=== PATIENT | male | born 1985 | race Caucasian/White ===

== ENCOUNTER → 2016-06-06 | Outpatient (CLI) | payer OTHER ==
--- NOTE | 2016-06-06 11:18 | ECHOS ---
DATE OF SERVICE: 06/06/2016 AGE: 31Y SEX: M HT: 70 WT: 350 lbs. Protocol Angel: X Others: Stress Echo Stage: II Dur. of Exercise: 4-1/2 minutes *Heart Rate Blood Pressure *Rest: 119 Rest: 154/76 * *Max. Achieved: 170 Maximum BP: 198/89 85% PMHR: 160 100% PMHR: 188 *METS: 6.8 INDICATIONS: Chest pain and shortness of breath. MEDICATIONS: Lisinopril, metformin, Ativan. Baseline EKG revealed normal sinus rhythm with sinus tachycardia. Patient walked on standard Angel protocol for 4-1/2 minutes, achieved a maximum heart rate of 170 beats per minute. Developed fatigue and shortness of breath, but did not have angina or arrhythmia. EKG was unremarkable for ischemia. By EKG criteria, this is a negative stress test with very limited exercise capacity probably because of poor conditioning. Baseline echo images reveal normal wall motion and wall thickening of all segments. At peak exercise, there was good augmentation of left ventricular wall motion and wall thickening of all segments suggesting that there is no evidence of any stress-induced ischemia on this study. FINAL IMPRESSION: 1. By EKG criteria, this is a negative stress test with limited exercise capacity probably because of poor conditioning. 2. Normal stress echocardiogram with limited exercise capacity.
== END | disposition home or self-care (01) ==
LOC: RADNMMAIN 09:11
PROVIDERS: ATTEND Family Medicine
DX: R07.9 Chest pain, unspecified (principal)
CPT/HCPCS: 93017; C8928; Q9957; 93350

== ENCOUNTER → 2016-06-20 | Outpatient (CLI) | payer OTHER ==
--- NOTE | 2016-06-20 17:38 | PN ---
Nikhil is coming in for a compliancy check regarding his obstructive sleep apnea. He was diagnosed having moderate to severe STEPHANIA with an AHI of 24. He was given a CPAP pressure of 14 cm of water based on the titration that was done in March of 2016. Today he is coming in for a compliancy check and he is bringing his CPAP machine with him. He has a ResMed AutoSet unit which is set at a fixed CPAP pressure of 14 cm of water. I checked his compliancy data and it is extremely poor. The patient tells me that initially he used it and he felt great; however, he was having difficulties exhaling and he ended up not using the machine for the past 50 days at least. While on the CPAP therapy, the treatment was successful; his AHI dropped down to 2.2. Nevertheless, I do not see that he has put enough days or enough hours on that CPAP machine. He was given a Simplus full-face mask. His BP is 148/88, pulse 100, respiration 16. Temperature is 98.0, saturation 96% on room air. Weight is 355, which is 3 pounds higher compared to his CPAP titration date. GENERAL APPEARANCE: Calm, comfortable. HEENT: Short neck. Crowding of the posterior pharynx. No goiter or neck masses. LUNGS: Clear to auscultation. HEART: Sounds are regular rate and rhythm. Normal S1, S2. ABDOMEN: Soft, nontender. No organomegaly. EXTREMITIES: No edema. No cyanosis or clubbing. IMPRESSION: 1. Moderately severe obstructive sleep apnea with an AHI of 24 with very poor compliancy, based on the compliance data that was checked from his CPAP machine. 2. Chronic hypersomnia. 3. Obesity with a body mass index of 52.1. PLAN: 1. Encourage weight loss. 2. Adjustments will be made on the CPAP machine based on the previous titration that was done in March of 2016. I reviewed this study again, and I thought lowering the CPAP pressure to 11 cm of water is reasonable for the time being as long as the patient is having difficulty with exhalation while being on CPAP therapy. I dropped his CPAP pressure to 11, and I also switched him to an automatic mode and offered him a pressure maximum of 11, pressure minimum of 4. Hopefully with this adjustment he will be encountering lower CPAP pressures. We will be keeping him on a Simplus full-face mask. He will see me back in 4 weeks' time in followup. It is very important for him to improve his compliancy; otherwise, he will be losing his CPAP machine.
== END | disposition home or self-care (01) ==

== ENCOUNTER → 2016-08-31 | Outpatient (CLI) | payer OTHER ==
[2016-08-31 17:16] LABS: ALT 78 U/L (21-72); AST 33 U/L (17-59); Alkaline Phosphatase 51 U/L (38-126); Anion Gap 11 mmol/L; Blood Urea Nitrogen 14 mg/dL (9-20); Calcium 9.1 mg/dL (8.4-10.2); Carbon Dioxide 26 mmol/L (22-30); Chloride 104 mmol/L (98-107); Cholesterol 120 mg/dL (<200); Glucose 113 mg/dL (74-99); HDL Cholesterol 35 mg/dL (40-60); Non-African American GFR(MDRD) >60 (>60 ml/min/1.73 sqM); Potassium 4.7 mmol/L (3.5-5.1); Sodium 141 mmol/L (137-145); Total Bilirubin 0.5 mg/dL (0.2-1.3); Total Protein 6.7 g/dL (6.3-8.2); Triglycerides 110 mg/dL (<150)
[2016-08-31 17:34] LABS: Prolactin 23.3 ng/mL (3.7-17.9)
[2016-08-31 18:16] LABS: Hemoglobin A1C 7.7 % (4.2-6.1)
== END | disposition home or self-care (01) ==
LOC: LABWHC1 16:07
PROVIDERS: ATTEND Internal Medicine
DX: D44.3 Neoplasm of uncertain behavior of pituitary gland (principal); G62.9 Polyneuropathy, unspecified; E11.9 Type 2 diabetes mellitus without complications; E78.5 Hyperlipidemia, unspecified
CPT/HCPCS: 36415; 80053; 80061; 82043; 82533; 83001; 83002; 83036; 84146; 84305; 84403; 84439; 84443

== ENCOUNTER → 2016-11-13 | Outpatient (CLI) | payer OTHER ==
--- NOTE | 2016-11-13 16:54 | US ---
EXAMINATION TYPE: US venous doppler duplex LE LT DATE OF EXAM: 11/13/2016 4:45 PM COMPARISON: NONE CLINICAL HISTORY: R60.0 edema left leg. SIDE PERFORMED: Left TECHNIQUE: The lower extremity deep venous system is examined utilizing real time linear array sonog abhishek with graded compression, doppler sonography and color-flow sonography. VESSELS IMAGED: External Iliac Vein (EIV) Common Femoral Vein Deep Femoral Vein Greater Saphenous Vein * Femoral Vein Popliteal Vein Small Saphenous Vein * Proximal Calf Veins (* superficial vessels) Large body habitus, technically difficult study Left Leg: Negative for DVT IMPRESSION: Negative exam. No evidence of deep venous thrombosis in the left leg. Limited exam.
== END | disposition home or self-care (01) ==
LOC: RADUSWWP 16:23
PROVIDERS: ATTEND Family Medicine
DX: R60.0 Localized edema (principal)

== ENCOUNTER → 2016-11-17 | Outpatient (CLI) | payer OTHER ==
--- NOTE | 2016-11-17 11:08 | US ---
EXAMINATION TYPE: US abdomen limited DATE OF EXAM: 11/17/2016 COMPARISON: Prior limited abdominal ultrasound from December 14, 2015 CLINICAL HISTORY: R10.9 Abd Pain. RUQ pain, nausea EXAM MEASUREMENTS: Liver Length: 22.9 cm Gallbladder Wall: 0.3 cm CBD: 0.4 cm Right Kidney: 11.7 x 5.3 x 4.9 cm Pancreas: Obscured by bowel gas Liver: limited evaluation, unable to penetrate, enlarged and attenuating Gallbladder: stone = 1.2cm, solid material noted as well Evidence for sonographic Simmons's sign: No CBD: appears wnl as visualized Right Kidney: no evidence of hydronephrosis or mass Technical limitations due to patient's body habitus. Pancreas is suboptimally evaluated on images saved. Visualized liver is heterogeneously hyperechoic i n appearance. Evaluation for focal masses is suboptimal due to the heterogeneity. Gallbladder is not completely anechoic. There is shadowing gallstone. There is suspected small stones or gallbladder slu dge. No pericholecystic fluid collection or abnormal Doppler wall thickening is seen. Sonographic Mur phy's sign is negative. IMPRESSION: 1. Gallstones and gallbladder sludge without convincing secondary ultrasound evidence for acute renate cystitis. 2. Diffuse fatty infiltration of liver is redemonstrated.
== END | disposition home or self-care (01) ==
LOC: RADUSWWP 10:27
PROVIDERS: ATTEND Family Medicine
DX: K80.20 Calculus of gallbladder without cholecystitis without obstruction (principal); K76.0 Fatty (change of) liver, not elsewhere classified; Z88.6 Allergy status to analgesic agent
CPT/HCPCS: 76705

== ENCOUNTER 2017-01-14 20:34 | Observation (INO) | payer OTHER ==
--- NOTE | 2017-01-14 21:23 | ED ---
General Adult HPI - General Chief complaint: Arrhythmia/Palpitations Stated complaint: weakness; nausea Time Seen by Provider: 01/14/17 20:47 Source: patient, RN notes reviewed, old records reviewed Mode of arrival: ambulatory Limitations: no limitations - History of Present Illness Initial comments: Chief complaint history of present illness this is a 31-year-old male with a complaint of palpitations mild chest discomfort. Patient reports this is occurred to him over 6 times this year alone. He's had workups including stress test without any positive findings. Patient reports this evening he was having some palpitations and some sweats or chillswhich are recurrent. No apparent radiation. No nausea no vomiting. - Related Data Home Medications Medication Instructions Recorded Confirmed LORazepam [Ativan] 1 mg PO DAILY PRN 12/11/16 01/14/17 metFORMIN HCL [Glucophage] 500 mg PO BID 12/11/16 01/14/17 Citalopram Hydrobromide [CeleXA] 10 mg PO ONCE 01/14/17 01/14/17 Citalopram Hydrobromide [CeleXA] 20 mg PO DAILY 01/14/17 01/14/17 Glimepiride [Amaryl] 2 mg PO DAILY 01/14/17 01/14/17 Pantoprazole Sodium [Protonix] 40 mg PO DAILY 01/14/17 01/14/17 Previous Rx's Medication Instructions Recorded Lisinopril [Zestril] 10 mg PO DAILY #30 tab 11/01/15 Allergies Allergy/AdvReac Type Severity Reaction Status Date / Time naproxen Allergy Rash/Hives Verified 01/14/17 21:20 Review of Systems ROS Statement: Those systems with pertinent positive or pertinent negative responses have been documented in the HPI. review of systems no visual acuity or headache at this time the chest pain palpitations or pressure at this time. Patient reports his normal heart rate to 100 110. Around emergency room was 116. During the physical exam was at the 125. Patient reports she was often diaphoretic even without the chest discomfort or palpitations. Mild nausea but no vomiting no diarrhea. Patient' s past medical problems significant for non-insulin diabetes mellitus, hypertension, sleep apnea as difficulty using a CPAP machine. He has a gallbladder disorder he states for the past 9 months trying to get it removed but scheduling is made difficult. The patient surgeries include wisdom teeth. The patient's family history significant for cancers and include colon, bone lung and lymph nodes. The patient quit smoking drinking 20 years ago ROS Other: All systems not noted in ROS Statement are negative. Past Medical History Past Medical History: Diabetes Mellitus, Hypertension, Sleep Apnea/CPAP/BIPAP Additional Past Medical History / Comment(s): gallbladder disorder. brain lesion. uses c-pap History of Any Multi-Drug Resistant Organisms: None Reported Additional Past Surgical History / Comment(s): wisdom teeth Past Anesthesia/Blood Transfusion Reactions: Previous Problems w/ Anesthesia Additional Past Anesthesia/Blood Transfusion Reaction / Comment(s): has a hard time breathing when lying flat or on side Past Psychological History: Anxiety Smoking Status: Former smoker Past Alcohol Use History: None Reported Past Drug Use History: None Reported - Past Family History Mother Family Medical History: No Reported History General Exam - General Exam Comments Initial Comments: General: The patient is awake and alert,complaint palpitations. States his heart rates normally 105-110. Diaphoresis and occasional shortness of breath. Recurrent symptoms that brought emergency room 6 times in the past year. No chest pain at this time. Vital signs temp 99.8 pulse 116 respiratory rate 20 pulse ox 96% room air blood pressure 160/78ll. Eye: Pupils are equal, round and reactive to light, extra-ocular movements are intact ; there is normal conjunctiva bilaterally. No signs of icterus. Ears, nose, mouth and throat: There are moist mucous membranes and no oral lesions. Neck: The neck is supple, there is no tenderness . Cardiovascular: tachycardic heart rate, 116. No murmur, rub or gallop is appreciated. Respiratory: Lungs are clear to auscultation, respirations are non-labored, breath sounds are equal. No wheezes, stridor, rales, or rhonchi. Gastrointestinal: Soft, non-distended, non-tender abdomen without masses or organomegaly noted. There is no rebound or guarding present. No CVA tenderness. Bowel sounds are unremarkable.patient is morbidly obese 5 foot 10 and 360 pounds. Back: There is no tenderness to palpation in the midline. There is no obvious deformity. No rashes noted. Musculoskeletal: Normal ROM, no tenderness, There is no pedal edema. There is no calf tenderness or swelling. Sensation intact. Pulses equal bilaterally 2+. Neurological: CN II-XII intact, There are no obvious motor or sensory deficits. Coordination appears grossly intact. Speech is normal. Skin: Skin is warm and dry and no rashes or lesions are noted. no rash no lesions. Psychiatric: history of anxiety but no problems at this time. Limitations: no limitations Course Vital Signs 01/14/17 01/14/17 20:35 21:39 Temperature 99.8 F H Pulse Rate 116 H 112 H Respiratory 20 20 Rate Blood Pressure 160/78 O2 Sat by Pulse 96 96 Oximetry EKG Findings - EKG Comments: EKG Findings:: EKG was doneand reviewed at 2047 showing sinus tachycardia rate 116. Left posterior fascicular block nonspecific T wave irregularities. MA interval was 128 QRS 92 QT 3:30 QTc [address]. No acute ST elevation, no ectopy. The patient's EKG was compared to one done on 04/28/2016 and they're similar. Medical Decision Making - Medical Decision Making Medical decision making; patient's white count is 9.1 hemoglobin 15 hematocrit of 47 with a normal d-dimer 0.18. Potassium 4.4 BUN 18 creatinine 1.0 GFR greater than 60. Glucose 223. Chest x-ray was done and reviewed by radiologist his findings are heart and mediastinum are normal. Lungs are clear. Diaphragm is normal. There are chest leads. Impression; normal chest no change. As read by Dr. Wade The patient was started on subcu heparin. He'll be admitted for observation for atypical chest pain. - Lab Data Result diagrams: 01/14/17 21:45 01/14/17 21:45 Lab Results 01/14/17 01/14/17 01/14/17 Range/Units 21:45 21:45 21:45 WBC 9.1 (3.8-10.6) k/uL RBC 5.36 (4.30-5.90) m/uL Hgb 15.5 (13.0-17.5) gm/dL Hct 47.2 (39.0-53.0) % MCV 88.1 (80.0-100.0) fL MCH 29.0 (25.0-35.0) pg MCHC 32.9 (31.0-37.0) g/dL RDW 14.1 (11.5-15.5) % Plt Count 245 (150-450) k/uL Neutrophils % 72 % Lymphocytes % 19 % Monocytes % 5 % Eosinophils % 1 % Basophils % 1 % Neutrophils # 6.5 (1.3-7.7) k/uL Lymphocytes # 1.7 (1.0-4.8) k/uL Monocytes # 0.4 (0-1.0) k/uL Eosinophils # 0.1 (0-0.7) k/uL Basophils # 0.1 (0-0.2) k/uL D-Dimer 0.18 (<0.60) mg/L FEU Sodium 141 (137-145) mmol/L Potassium 4.4 (3.5-5.1) mmol/L Chloride 107 (98-107) mmol/L Carbon Dioxide 23 (22-30) mmol/L Anion Gap 11 mmol/L BUN 18 (9-20) mg/dL Creatinine 1.00 (0.66-1.25) mg/dL Est GFR (MDRD) Af Amer >60 (>60 ml/min/1.73 sqM) Est GFR (MDRD) Non-Af >60 (>60 ml/min/1.73 sqM) Glucose 223 H (74-99) mg/dL Calcium 9.6 (8.4-10.2) mg/dL Total Bilirubin 0.3 (0.2-1.3) mg/dL AST 36 (17-59) U/L ALT 87 H (21-72) U/L Alkaline Phosphatase 59 (38-126) U/L Total Protein 6.7 (6.3-8.2) g/dL Albumin 4.0 (3.5-5.0) g/dL Disposition Clinical Impression: Chest pain, atypical Disposition: ADMITTED IP TO THIS HOSP Condition: Stable Referrals: Dixon Rinaldi MD [Primary Care Provider] - 1-2 days
--- NOTE | 2017-01-14 21:46 | XR ---
EXAMINATION TYPE: XR chest 2V DATE OF EXAM: 01/14/2017 COMPARISON: April 28, 2016 HISTORY: Chest pressure TECHNIQUE: Frontal and lateral views of the chest are obtained. FINDINGS: Heart and mediastinum are normal. Lungs are clear. Diaphragm is normal. There are chest le ads. IMPRESSION: Normal chest. No change.
[2017-01-14 21:57] LABS: Basophils # (A) 0.1 k/uL (0-0.2); Basophils % (A) 1 %; CH 29.8; Eosinophils # (A) 0.1 k/uL (0-0.7); Eosinophils % (A) 1 %; HCT 47.2 % (39.0-53.0); HDW 2.69; HGB 15.5 gm/dL (13.0-17.5); Luc % (Auto) 2; Lymphocytes # (A) 1.7 k/uL (1.0-4.8); Lymphocytes % (A) 19 %; MCHC 32.9 g/dL (31.0-37.0); MCV 88.1 fL (80.0-100.0); Mean Platelet Volume 7.3; Monocytes # (A) 0.4 k/uL (0-1.0); Monocytes % (A) 5 %; Neutrophils # (A) 6.5 k/uL (1.3-7.7); Neutrophils % (A) 72 %; RBC 5.36 m/uL (4.30-5.90); RDW 14.1 % (11.5-15.5); WBC 9.1 k/uL (3.8-10.6); WBC (Perox) 8.77
[2017-01-14 22:09] LABS: ALT 87 U/L (21-72); AST 36 U/L (17-59); Alkaline Phosphatase 59 U/L (38-126); Anion Gap 11 mmol/L; Blood Urea Nitrogen 18 mg/dL (9-20); Calcium 9.6 mg/dL (8.4-10.2); Carbon Dioxide 23 mmol/L (22-30); Chloride 107 mmol/L (98-107); Glucose 223 mg/dL (74-99); Non-African American GFR(MDRD) >60 (>60 ml/min/1.73 sqM); Potassium 4.4 mmol/L (3.5-5.1); Sodium 141 mmol/L (137-145); Total Bilirubin 0.3 mg/dL (0.2-1.3); Total Protein 6.7 g/dL (6.3-8.2)
[2017-01-14 22:17] LABS: Creatine Kinase 303 U/L (55-170)
[2017-01-14] MEDS ORDERED: HEPARIN SODIUM,PORCINE 5,000 UNIT/ML 1 ML VIAL SQ STA (22:26)
[2017-01-14] MEDS ORDERED: NALOXONE 0.4 MG/ML 1 ML VIAL IV PRN (22:28)
[2017-01-14] MEDS ORDERED: ACETAMINOPHEN TAB 325 MG TAB PO PRN (22:28)
[2017-01-14 22:29] LABS: Creatine Kinase MB 1.3 ng/mL (0.0-2.4); Troponin I <0.012 ng/mL (0.000-0.034)
[2017-01-14 23:52] VITALS: BMI 50.2
[2017-01-15] MEDS: metFORMIN 500 MG TAB PO SCH ×2 (00:07→09:26)
[2017-01-15 00:31] VITALS: RESP 16
[2017-01-15 04:53] LABS: Creatine Kinase 245 U/L (55-170)
[2017-01-15 05:06] LABS: Troponin I <0.012 ng/mL (0.000-0.034)
[2017-01-15 07:17] LABS: Glucose,Whole Blood 119 mg/dL (75-99)
[2017-01-15] MEDS ORDERED: FAMOTIDINE 20 MG TAB PO SCH (09:00)
[2017-01-15] MEDS ORDERED: METOPROLOL TARTRATE 12.5 MG TAB PO SCH (09:15)
[2017-01-15] MEDS: SODIUM CHLORIDE 0.9% 1,000 ML IV SCH ×2 (09:26→11:04)
[2017-01-15 10:35] LABS: Creatine Kinase 213 U/L (55-170)
[2017-01-15 10:45] LABS: Troponin I <0.012 ng/mL (0.000-0.034)
[2017-01-15 11:37] LABS: Cholesterol 134 mg/dL (<200); HDL Cholesterol 36 mg/dL (40-60)
[2017-01-15 12:05] LABS: Glucose,Whole Blood 187 mg/dL (75-99)
[2017-01-15 12:59] VITALS: BP 139/83; PULSE 97; TEMP 99.1
[2017-01-15 13:01] LABS: Hemoglobin A1C 8.3 % (4.2-6.1)
--- NOTE | 2017-01-15 14:33 | P.CRDCN ---
History of Present Illness Consult date: 01/15/17 History of present illness: This is a 31-year-old male. Past medical history significant for sinus tachycardia, hypertension, diabetes, anxiety and morbid obesity. Patient presents with complaints of and intermittent palpitations associated with diaphoresis. Patient sees Dr. Chacon as an outpatient. He was last seen in September of this year. He has worn an event monitor in the past did not reveal any significant arrhythmias. Although the patient states during his last event monitor he did not feel any of these symptoms during the 30 days. Upon review of his vital signs it appears his heart rate is decreased in the 70s and 80s while he is asleep and immediately goes up while he is awake. His heart rate at time of exam is 120. Patient had a exercise stress echo in May of this year which was normal. Most recent echocardiogram was done 09/22/2016 shows a preserved left ventricular systolic function with an ejection fraction of 55% with moderate concentric hypertrophy, left atrium is mildly dilated, mitral regurgitation and trace tricuspid regurgitation. His current medications include metformin, Protonix, Zestril 10 mg daily, Ativan when necessary, Amaryl , Celexa. EKG done shows sinus tachycardia with nonspecific T-wave abnormalities, rate of 116 beats per minute. CBC was within normal limits, d-dimer negative, blood sugars mildly elevated. CPK and troponin are normal x 2. TSH was done in October. Chest x-ray showed no acute cardiopulmonary process. Review of Systems REVIEW OF SYSTEMS: Patient denies any chest discomfort. No shortness of breath. No diaphoresis. Denies headache, dizziness, blurred vision, double vision. No dyspnea on exertion. Patient denies any stomach discomfort. No nausea, vomiting. No hematochezia. No hematemesis. Denies any black stools or blood in his stools. No syncope. No palpitations at this current time. No cough. No recent fever or chills. No muscle weakness or numbness. Past Medical History Past Medical History: Diabetes Mellitus, Hypertension, Sleep Apnea/CPAP/BIPAP Additional Past Medical History / Comment(s): gallbladder disorder supposed to have it removed in dec 2016. 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 uses c-pap. palpatations History of Any Multi-Drug Resistant Organisms: None Reported Additional Past Surgical History / Comment(s): wisdom teeth Past Anesthesia/Blood Transfusion Reactions: Previous Problems w/ Anesthesia Additional Past Anesthesia/Blood Transfusion Reaction / Comment(s): has a hard time breathing when lying flat or on side Past Psychological History: Anxiety Smoking Status: Former smoker Past Alcohol Use History: None Reported Additional Past Alcohol Use History / Comment(s): quit smoking 2014. STILL USES VAPOR THAT HAS NICOTINE IN SOLUTION Past Drug Use History: None Reported - Past Family History Mother Family Medical History: No Reported History Additional Family Medical History / Comment(s): grandfather [facility] at 50 Medications and Allergies Home Medications Medication Instructions Recorded Confirmed Type LORazepam [Ativan] 1 mg PO DAILY PRN 12/11/16 01/14/17 History metFORMIN HCL [Glucophage] 500 mg PO BID 12/11/16 01/14/17 History Citalopram Hydrobromide [CeleXA] 10 mg PO ONCE 01/14/17 01/14/17 History Citalopram Hydrobromide [CeleXA] 20 mg PO DAILY 01/14/17 01/14/17 History Glimepiride [Amaryl] 2 mg PO DAILY 01/14/17 01/14/17 History Pantoprazole Sodium [Protonix] 40 mg PO DAILY 01/14/17 01/14/17 History Allergies Allergy/AdvReac Type Severity Reaction Status Date / Time naproxen Allergy Rash/Hives Verified 01/14/17 21:20 Physical Exam Vitals: Vital Signs Temp Pulse Pulse Pulse Resp BP BP 01/15/17 08:00 98.1 F 83 16 143/80 01/15/17 05:11 76 16 159/89 01/15/17 04:00 90 16 01/15/17 00:30 98.5 F 106 H 16 163/92 01/15/17 00:00 99 20 01/14/17 23:30 98.8 F 99 16 135/80 01/14/17 22:44 98.4 F 100 20 167/84 01/14/17 21:39 112 H 20 01/14/17 20:35 99.8 F H 116 H 20 160/78 Pulse Ox 01/15/17 08:00 98 01/15/17 05:11 98 01/15/17 04:00 01/15/17 00:30 93 L 01/15/17 00:00 01/14/17 23:30 98 01/14/17 22:44 97 01/14/17 21:39 96 01/14/17 20:35 96 Intake and Output 01/14/17 01/15/17 01/15/17 22:59 06:59 14:59 Other: # Voids 1 2 Weight 158.757 kg 158.757 kg GENERAL: This is a 31-year-old artesian male in no apparent distress at the time of my examination. Morbid obesity. HEENT: Head is atraumatic, normocephalic. Pupils are equal, round. Sclerae anicteric. Conjunctivae are clear. Mucous membranes of the mouth are moist. Neck is supple. There is no jugular venous distention. No carotid bruit is heard. LUNGS: Clear to auscultation no wheezes, rales or rhonchi. No chest wall tenderness is noted on palpation or with deep breathing. HEART: Regular rate and rhythm without murmurs, rubs or gallops. S1 and S2 heard. Tachycardia. ABDOMEN: Soft, nontender. Bowel sounds are heard. No organomegaly noted. EXTREMITIES: 2+ peripheral pulses with no evidence of peripheral edema and no calf tenderness noted. NEUROLOGIC: Patient is awake, alert and oriented x3. Results 01/14/17 21:45 01/14/17 21:45 Cardiac Enzymes 01/14/17 01/14/17 01/15/17 Range/Units 21:45 21:45 03:45 AST 36 (17-59) U/L CK-MB (CK-2) 1.3 1.0 (0.0-2.4) ng/mL Troponin I <0.012 <0.012 (0.000-0.034) ng/mL CBC 01/14/17 Range/Units 21:45 WBC 9.1 (3.8-10.6) k/uL RBC 5.36 (4.30-5.90) m/uL Hgb 15.5 (13.0-17.5) gm/dL Hct 47.2 (39.0-53.0) % Plt Count 245 (150-450) k/uL Comprehensive Metabolic Panel 01/14/17 Range/Units 21:45 Sodium 141 (137-145) mmol/L Potassium 4.4 (3.5-5.1) mmol/L Chloride 107 (98-107) mmol/L Carbon Dioxide 23 (22-30) mmol/L BUN 18 (9-20) mg/dL Creatinine 1.00 (0.66-1.25) mg/dL Glucose 223 H (74-99) mg/dL Calcium 9.6 (8.4-10.2) mg/dL AST 36 (17-59) U/L ALT 87 H (21-72) U/L Alkaline Phosphatase 59 (38-126) U/L Total Protein 6.7 (6.3-8.2) g/dL Albumin 4.0 (3.5-5.0) g/dL Current Medications Generic Name Dose Route Start Last Admin Trade Name Freq PRN Reason Stop Dose Admin Acetaminophen 650 mg 01/14/17 22:28 Tylenol Tab PO Q6HR PRN Mild Pain or Fever > 100.5 Famotidine 20 mg 01/15/17 09:00 01/15/17 09:26 Pepcid PO 20 mg BID ALCIDES Administration Sodium Chloride 1,000 mls @ 80 mls/hr 01/14/17 22:30 01/15/17 09:26 Saline 0.9% IV Not Given .[id number] ALCIDES Metformin HCl 500 mg 01/14/17 23:00 01/15/17 09:26 Glucophage PO 500 mg BID-W/MEALS ALCIDES Administration Metoprolol Tartrate 12.5 mg 01/15/17 09:15 Lopressor PO BID ALCIDES Naloxone HCl 0.2 mg 01/14/17 22:28 Narcan IV Q2M PRN Opioid Reversal Intake and Output 01/14/17 01/15/17 01/15/17 22:59 06:59 14:59 Other: # Voids 1 2 Weight 158.757 kg 158.757 kg 01/14/17 21:45 01/14/17 21:45 EKG Interpretations (text) EKG reveals sinus tachycardia with nonspecific T-wave abnormalities. Assessment and Plan Plan: ASSESSMENT 1. Palpitations, sinus tachycardia 2. Hypertension 3. Diabetes mellitus 4. Morbid obesity PLAN We will start the patient on low dose beta zuleika 12.5 mg by mouth twice a day. We will also set up for another 30 day event monitor. He is to follow-up with Dr. Dr. Chacon in the office after the event monitor is completed. Nurse Practitioner note has been reviewed, I agree with a documented findings and plan of care. Patient was seen and examined.
--- NOTE | 2017-01-15 16:20 | P.HPIM ---
History of Present Illness H&P Date: 01/15/17 Chief Complaint: Palpitations This is a 31-year-old male with Past medical history significant for sinus tachycardia, hypertension, diabetes, anxiety and morbid obesity and objective sleep apnea on CPAP at home. Patient presents with complaints of and intermittent palpitations associated with diaphoresis and tingling along the left side of the body.. Some time in July, He has worn an event monitor in the past did not reveal any significant arrhythmias. Patient apparently having the symptoms for the past several months and was seen by cardiology previously. Patient was tachycardic on admission. There are any chest tightness, dizziness or lightheadedness. Patient had a exercise stress echo in May of this year which was normal. Most recent echocardiogram was done 09/22/2016 shows a preserved left ventricular systolic function with an ejection fraction of 55% with moderate concentric hypertrophy, left atrium is mildly dilated, mitral regurgitation and trace tricuspid regurgitation. EKG done shows sinus tachycardia with nonspecific T-wave abnormalities, rate of 116 beats per minute. CBC was within normal limits, d-dimer negative, blood sugars mildly elevated. CPK and troponin are normal x 2. TSH was done in October. Chest x-ray showed no acute cardiopulmonary process. Review of Systems Constitutional: Patient denies any fever or chills . No generalized weakness or weight loss. Abdomen: Patient denied nausea vomiting and diarrhea and abdominal pain. Cardiovascular: Tingling sensation along the left side of his chest and palpitations. No diaphoresis or short of breath. Respiratory: patient denied any cough is from production. No shortness of breath Neurologic: Patient denied any numbness or tingling headache. Musculoskeletal: Patient denies any complaints of joint swelling or deformity. Skin: Negative Psychiatric: Negative Endocrine: No heat or cold intolerance. No recent weight gain. Genitourinary: No dysuria or hematuria. All other 14 point ROS negative except the above Past Medical History Past Medical History: Diabetes Mellitus, Hypertension, Sleep Apnea/CPAP/BIPAP Additional Past Medical History / Comment(s): gallbladder disorder supposed to have it removed in dec 2016. 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 uses c-pap. palpatations History of Any Multi-Drug Resistant Organisms: None Reported Additional Past Surgical History / Comment(s): wisdom teeth Past Anesthesia/Blood Transfusion Reactions: Previous Problems w/ Anesthesia Additional Past Anesthesia/Blood Transfusion Reaction / Comment(s): has a hard time breathing when lying flat or on side Past Psychological History: Anxiety Smoking Status: Former smoker Past Alcohol Use History: None Reported Additional Past Alcohol Use History / Comment(s): quit smoking 2014. STILL USES VAPOR THAT HAS NICOTINE IN SOLUTION Past Drug Use History: None Reported - Past Family History Mother Family Medical History: No Reported History Additional Family Medical History / Comment(s): grandfather [place] at 50 Medications and Allergies Home Medications Medication Instructions Recorded Confirmed Type LORazepam [Ativan] 1 mg PO DAILY PRN 12/11/16 01/14/17 History metFORMIN HCL [Glucophage] 500 mg PO BID 12/11/16 01/14/17 History Citalopram Hydrobromide [CeleXA] 10 mg PO ONCE 01/14/17 01/14/17 History Citalopram Hydrobromide [CeleXA] 20 mg PO DAILY 01/14/17 01/14/17 History Glimepiride [Amaryl] 2 mg PO DAILY 01/14/17 01/14/17 History Pantoprazole Sodium [Protonix] 40 mg PO DAILY 01/14/17 01/14/17 History Allergies Allergy/AdvReac Type Severity Reaction Status Date / Time naproxen Allergy Rash/Hives Verified 01/14/17 21:20 Physical Exam Vitals: Vital Signs Temp Pulse Pulse Pulse Resp BP BP 01/15/17 12:00 99.1 F 97 16 139/83 01/15/17 08:00 98.1 F 83 16 143/80 01/15/17 05:11 76 16 159/89 01/15/17 04:00 90 16 01/15/17 00:30 98.5 F 106 H 16 163/92 01/15/17 00:00 99 20 01/14/17 23:30 98.8 F 99 16 135/80 01/14/17 22:44 98.4 F 100 20 167/84 01/14/17 21:39 112 H 20 01/14/17 20:35 99.8 F H 116 H 20 160/78 Pulse Ox 01/15/17 12:00 99 01/15/17 08:00 98 01/15/17 05:11 98 01/15/17 04:00 01/15/17 00:30 93 L 01/15/17 00:00 01/14/17 23:30 98 08/20/17 22:44 97 01/14/17 21:39 96 01/14/17 20:35 96 Intake and Output 01/14/17 01/15/17 01/15/17 22:59 06:59 14:59 Other: # Voids 1 2 Weight 158.757 kg 158.757 kg PHYSICAL EXAMINATION: Patient is lying in the bed comfortably, no acute distress, awake alert and oriented.. Morbidly obese HEENT: Normocephalic. Neck is supple. Pupils reactive. Nostrils clear. Oral cavity is moist. Ears reveal no drainage. Neck reveals no JVD, carotid bruits, or thyromegaly. CHEST EXAMINATION: Trachea is central. Symmetrical expansion. Lung junior clear to auscultation and percussion. CARDIAC: Normal S1, S2 with no gallops. No murmurs. tachycardia ABDOMEN: Soft. Bowel sounds normal. No organomegaly. No abdominal bruits. Extremities: reveal no edema. No clubbing or cyanosis Neurologically awake, alert, oriented x3 with well-coordinated movements. No focal deficits noted Skin: No rash or skin lesions. Psychiatric: Operative. Nonsuicidal Musculoskeletal: No joint swelling or deformity. Normal range of motion. Results CBC & Chem 7: 01/14/17 21:45 01/14/17 21:45 Labs: Abnormal Lab Results - Last 24 Hours (Table) 01/14/17 01/14/17 01/15/17 Range/Units 21:45 21:45 03:45 Glucose 223 H (74-99) mg/dL POC Glucose (mg/dL) (75-99) mg/dL ALT 87 H (21-72) U/L Total Creatine Kinase 303 H 245 H (55-170) U/L HDL Cholesterol (40-60) mg/dL 01/15/17 01/15/17 01/15/17 Range/Units 03:45 07:16 09:38 Glucose (74-99) mg/dL POC Glucose (mg/dL) 119 H (75-99) mg/dL ALT (21-72) U/L Total Creatine Kinase 213 H (55-170) U/L HDL Cholesterol 36 L (40-60) mg/dL 01/15/17 Range/Units 11:59 Glucose (74-99) mg/dL POC Glucose (mg/dL) 187 H (75-99) mg/dL ALT (21-72) U/L Total Creatine Kinase (55-170) U/L HDL Cholesterol (40-60) mg/dL Thrombosis Risk Factor Assmnt - Choose All That Apply Each Factor Represents 1 point: Obesity (BMI >25) Thrombosis Risk Factor Assessment Total Risk Factor Score: 1 Thrombosis Risk Factor Assessment Level: Low Risk Assessment and Plan Plan: #1 palpitations secondary to sinus tachycardia. With her history of present event monitor placement. No arrhythmia noted. #2 anxiety #3 hypertension #4 obstructive sleep apnea #5 diabetes type 2 #6 moderate obesity with a BMI 50.2 #7 DVT prophylaxis Plan: Patient be continued on telemetry monitoring. Patient was started on metoprolol 12.5 mg twice a day and his heart rate is better controlled now. TSH within normal limits. D-dimer is negative. Cardiology recommends to follow up follow up as an outpatient for another event monitor placement. Patient is symptom-free at this time and wants to be discharged.
--- NOTE | 2017-01-15 16:20 | P.DS ---
Providers Date of admission: 01/14/17 22:28 Expected date of discharge: 01/15/17 Attending physician: Clay Carvajal MD Consults: 01/14/17 22:28 Consult Physician Stat Consulting Provider: Fausto Ji Consult Reason/Comments: atypical chest pain Do you want consulting provider notified?: Yes Primary care physician: Dixon Rinaldi Hospital Course: Discharge diagnoses Discharge Diagnoses #1 palpitations secondary to sinus tachycardia. With her history of present event monitor placement. No arrhythmia noted. #2 anxiety #3 hypertension #4 obstructive sleep apnea #5 diabetes type 2 #6 moderate obesity with a BMI 50.2 #7 DVT prophylaxis Hospital course This is a 31-year-old male with Past medical history significant for sinus tachycardia, hypertension, diabetes, anxiety and morbid obesity and objective sleep apnea on CPAP at home. Patient presents with complaints of and intermittent palpitations associated with diaphoresis and tingling along the left side of the body.. Some time in July, He has worn an event monitor in the past did not reveal any significant arrhythmias. Patient apparently having the symptoms for the past several months and was seen by cardiology previously. Patient was tachycardic on admission. There are any chest tightness, dizziness or lightheadedness. Patient had a exercise stress echo in May of this year which was normal. Most recent echocardiogram was done 09/22/2016 shows a preserved left ventricular systolic function with an ejection fraction of 55% with moderate concentric hypertrophy, left atrium is mildly dilated, mitral regurgitation and trace tricuspid regurgitation. EKG done shows sinus tachycardia with nonspecific T-wave abnormalities, rate of 116 beats per minute. Chest x-ray showed no acute cardiopulmonary process. Patient was continued on telemetry monitoring. Patient was started on metoprolol 12.5 mg twice a day and his heart rate is better controlled now. TSH couple months ago was within normal limits. D-dimer is negative. Chest x- ray negative. Serial EKG and troponins are negative. Cardiology recommends to follow up follow up as an outpatient for another event monitor placement. Patient is symptom-free at this time and wants to be discharged. Patient Condition at Discharge: Stable Plan - Discharge Summary New Discharge Prescriptions: New Metoprolol Tartrate [Lopressor] 12.5 mg PO BID #60 tab Continue Lisinopril [Zestril] 10 mg PO DAILY #30 tab metFORMIN HCL [Glucophage] 500 mg PO BID LORazepam [Ativan] 1 mg PO DAILY PRN PRN Reason: Anxiety Citalopram Hydrobromide [CeleXA] 20 mg PO DAILY Citalopram Hydrobromide [CeleXA] 10 mg PO ONCE Pantoprazole Sodium [Protonix] 40 mg PO DAILY Glimepiride [Amaryl] 2 mg PO DAILY Discharge Medication List Lisinopril [Zestril] 10 mg PO DAILY #30 tab 11/01/15 [Rx] LORazepam [Ativan] 1 mg PO DAILY PRN 12/11/16 [History] metFORMIN HCL [Glucophage] 500 mg PO BID 12/11/16 [History] Citalopram Hydrobromide [CeleXA] 10 mg PO ONCE 01/14/17 [History] Citalopram Hydrobromide [CeleXA] 20 mg PO DAILY 01/14/17 [History] Glimepiride [Amaryl] 2 mg PO DAILY 01/14/17 [History] Pantoprazole Sodium [Protonix] 40 mg PO DAILY 01/14/17 [History] Metoprolol Tartrate [Lopressor] 12.5 mg PO BID #60 tab 01/15/17 [Rx] Follow up Appointment(s)/Referral(s): Dixon Rinaldi MD [Primary Care Provider] - 1-2 days (Sunday, 01/19 at 10:00am) Tiffanie Chacon MD [STAFF PHYSICIAN] - 02/05/17 3:15 pm ([facility] (next to [facility])) Patient Instructions/Handouts: Chest Pain (DC) Activity/Diet/Wound Care/Special Instructions: Holter monitor directions and device to be mailed to patient Follow instructions for use and bring device to office follow up Discharge Disposition: HOME SELF-CARE
== END 2017-01-15 15:10 | disposition home or self-care (01) ==
LOC: EC 20:34 → 3OBS 22:28
PROVIDERS: ADMIT Internal Medicine; ATTEND Internal Medicine
DX: R00.0 Tachycardia, unspecified (principal); R61 Generalized hyperhidrosis; R06.02 Shortness of breath; R07.89 Other chest pain; F41.9 Anxiety disorder, unspecified; I10 Essential (primary) hypertension; R42 Dizziness and giddiness; G47.33 Obstructive sleep apnea (adult) (pediatric); Z99.89 Dependence on other enabling machines and devices; E11.9 Type 2 diabetes mellitus without complications; E66.01 Morbid (severe) obesity due to excess calories; Z68.43 Body mass index [BMI] 50.0-59.9, adult; Z79.84 Long term (current) use of oral hypoglycemic drugs; Z79.899 Other long term (current) drug therapy; Z88.6 Allergy status to analgesic agent; Z87.891 Personal history of nicotine dependence; Z80.0 Family history of malignant neoplasm of digestive organs; Z80.1 Family history of malignant neoplasm of trachea, bronchus and lung; Z80.7 Family history of other malignant neoplasms of lymphoid, hematopoietic and related tissues; Z80.8 Family history of malignant neoplasm of other organs or systems; Z82.49 Family history of ischemic heart disease and other diseases of the circulatory system
CPT/HCPCS: 99285; 96372 ×2; 36415; 93005; 93270; 93271; 85379; 80061; 80053; 83036; 82550 ×2; 82553 ×2; 84484 ×2; 85025; 71020; G0378 ×2; J1644

== ENCOUNTER → 2018-06-05 | Outpatient (CLI) | payer OTHER ==
--- NOTE | 2018-06-05 08:38 | MR ---
EXAMINATION TYPE: MR pituitary wo/w con DATE OF EXAM: 06/05/2018 COMPARISON: CT brain 03/17/2016 HISTORY: Neoplasm of pituitary gland, TECHNIQUE: Multiplanar, multisequence images of the sella turcica is performed without and with IV contrast, uti lizing 15 mL intravenous Gadavist . FINDINGS: Pituitary gland is not enlarged. There is decreased enhancement of the posterior aspect of the gland measuring approximately 5 mm following intravenous Gadavist. Normal vascular flow voids. Pi tuitary stalk is midline. Midline structures demonstrate normal morphology. Corpus callosum is normal. No evident hydrocephalus . IMPRESSION: Findings compatible with pituitary microadenoma
== END ==
LOC: RADMRIMAIN 07:11
PROVIDERS: ATTEND Family Medicine
DX: C75.1 Malignant neoplasm of pituitary gland (principal)
CPT/HCPCS: 70553; A9585

== ENCOUNTER 2019-01-03 03:25 | Emergency (ER) | payer OTHER ==
[2019-01-03 03:40] VITALS: RESP 20
[2019-01-03] MEDS ORDERED: SODIUM CHLORIDE 0.9% 1,000 ML IV STA (03:46)
[2019-01-03] MEDS ORDERED: MORPHINE SULFATE 4 MG/ML SYRINGE IV STA (03:46)
[2019-01-03 04:10] LABS: Appearance,Urine Clear (Clear); Bilirubin,Urine Negative (Negative); Blood,Urine Negative (Negative); Color,Urine Yellow; Glucose,Urine (UA) 4+ (Negative); Ketones,Urine Trace (Negative); Leukocyte Esterase,Urine Negative (Negative); Nitrite,Urine Negative (Negative); PH, Urine 5.5 (5.0-8.0); Protein,Urine Trace (Negative); Specific Gravity,Urine 1.042 (1.001-1.035); Urobilinogen,Urine <2.0 mg/dL (<2.0)
[2019-01-03 04:11] LABS: Basophils # (A) 0.1 k/uL (0-0.2); Basophils % (A) 1 %; Eosinophils # (A) 0.6 k/uL (0-0.7); Eosinophils % (A) 5 %; HCT 50.6 % (39.0-53.0); HGB 16.6 gm/dL (13.0-17.5); Lymphocytes # (A) 2.4 k/uL (1.0-4.8); Lymphocytes % (A) 21 %; MCH 28.7 pg (25.0-35.0); MCHC 32.8 g/dL (31.0-37.0); MCV 87.7 fL (80.0-100.0); Mean Platelet Volume 6.8; Monocytes # (A) 0.5 k/uL (0-1.0); Monocytes % (A) 5 %; Neutrophils # (A) 7.5 k/uL (1.3-7.7); Neutrophils % (A) 67 %; Platelet Count 269 k/uL (150-450); RBC 5.77 m/uL (4.30-5.90); RDW 13.2 % (11.5-15.5); WBC 11.2 k/uL (3.8-10.6)
[2019-01-03] MEDS ORDERED: ONDANSETRON 4 MG/2 ML VIAL IVP STA (04:16)
[2019-01-03] MEDS ORDERED: MORPHINE SULFATE 4 MG/ML SYRINGE IVP STA (04:16)
[2019-01-03 04:21] LABS: ALT 58 U/L (21-72); AST 28 U/L (17-59); African American GFR (CKD) >90 (>60 ml/min/1.73 sqM); Albumin 4.1 g/dL (3.5-5.0); Alkaline Phosphatase 64 U/L (38-126); Amylase <30 U/L (30-110); Anion Gap 8 mmol/L; Blood Urea Nitrogen 15 mg/dL (9-20); Calcium 9.5 mg/dL (8.4-10.2); Carbon Dioxide 28 mmol/L (22-30); Chloride 100 mmol/L (98-107); Glucose 314 mg/dL (74-99); Non-African American GFR(CKD) >90 (>60 ml/min/1.73 sqM); Potassium 4.3 mmol/L (3.5-5.1); Sodium 136 mmol/L (137-145); Total Bilirubin 0.4 mg/dL (0.2-1.3); Total Protein 7.2 g/dL (6.3-8.2)
--- NOTE | 2019-01-03 04:23 | ED ---
Abdominal Pain HPI - General Chief Complaint: Abdominal Pain Stated Complaint: Abd Pain Time Seen by Provider: 01/03/19 03:43 Source: patient Mode of arrival: ambulatory Limitations: no limitations - History of Present Illness Initial Comments: Nikhil is a morbidly obese 33-year-old gentleman with a history of known gallbladder disorder for which she was scheduled to follow-up with a surgeon in the fall of 2016 but never did. Patient reports that he can usually manage his gallbladder symptoms with diet, and when he does have pain he can usually tole rated for some period time. Patient reports that throughout the day on he ate 4 slices of pizza, no other food. Patient reports in the evening he been having significant pain in his right upper quadrant with associated nausea but no vomiting. Patient reports that after 3 hours of severe pain and became intolerable so he came to the ER for evaluation. Patient denies any associated fevers, chills or change in bowel or bladder habits. Patient describes the pain as sharp stabbing the right upper quadrant. - Related Data Home Medications Medication Instructions Recorded Confirmed LORazepam [Ativan] 1 mg PO DAILY PRN 12/11/16 01/14/17 metFORMIN HCL [Glucophage] 500 mg PO BID 12/11/16 01/14/17 Citalopram Hydrobromide [CeleXA] 10 mg PO ONCE 01/14/17 01/14/17 Citalopram Hydrobromide [CeleXA] 20 mg PO DAILY 01/14/17 01/14/17 Glimepiride [Amaryl] 2 mg PO DAILY 01/14/17 01/14/17 Pantoprazole Sodium [Protonix] 40 mg PO DAILY 01/14/17 01/14/17 Previous Rx's Medication Instructions Recorded Lisinopril [Zestril] 10 mg PO DAILY #30 tab 11/01/15 Metoprolol Tartrate [Lopressor] 12.5 mg PO BID #60 tab 01/15/17 Allergies Allergy/AdvReac Type Severity Reaction Status Date / Time naproxen Allergy Rash/Hives Verified 01/03/19 03:41 simvastatin AdvReac Abdominal Verified 01/03/19 03:41 Pain Review of Systems ROS Statement: Those systems with pertinent positive or pertinent negative responses have been documented in the HPI. ROS Other: All systems not noted in ROS Statement are negative. Past Medical History Past Medical History: Diabetes Mellitus, Hypertension, Sleep Apnea/CPAP/BIPAP Additional Past Medical History / Comment(s): gallbladder disorder supposed to have it removed in dec 2016. 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 uses c-pap. palpatations History of Any Multi-Drug Resistant Organisms: None Reported Additional Past Surgical History / Comment(s): wisdom teeth Past Anesthesia/Blood Transfusion Reactions: Previous Problems w/ Anesthesia Additional Past Anesthesia/Blood Transfusion Reaction / Comment(s): has a hard time breathing when lying flat or on side Past Psychological History: Anxiety, Schizophrenia Smoking Status: Current every day smoker Past Alcohol Use History: None Reported Past Drug Use History: None Reported - Past Family History Mother Family Medical History: No Reported History Additional Family Medical History / Comment(s): grandfather [place] at 50 General Exam - General Exam Comments Initial Comments: Physical Exam GENERAL: Patient is well-developed and well-nourished. Patient is nontoxic and well-hydrated and is in no distress. HENT: Normocephalic, Atraumatic. EYES: PERRL, EOMI PULMONARY: Unlabored respirations. No audible rales rhonchi or wheezing was noted. CARDIOVASCULAR: There is a regular rate and rhythm without any murmurs gallops or rubs. ABDOMEN: Morbidly obese Soft, tenderness to right upper quadrant Positive Simmons sign SKIN: Skin is clear with no lesions or rashes and otherwise unremarkable. : Deferred NEUROLOGIC: Patient is alert and oriented x3. Moving all extremities spontaneously MUSCULOSKELETAL: Normal extremities with adequate strength and full range of motion. No lower extremity swelling or edema. No calf tenderness. PSYCHIATRIC: Normal psychiatric evaluation Limitations: no limitations Course Vital Signs 01/03/19 01/03/19 01/03/19 03:37 04:38 05:46 Temperature 98.8 F 98.5 F 98.8 F Pulse Rate 99 100 89 Respiratory 20 20 20 Rate Blood Pressure 157/96 142/90 120/69 O2 Sat by Pulse 98 95 95 Oximetry 01/03/19 06:48 Temperature 98.6 F Pulse Rate 89 Respiratory 20 Rate Blood Pressure 127/87 O2 Sat by Pulse 95 Oximetry Medical Decision Making - Medical Decision Making The patient was seen and evaluated, history is obtained from the patient Labs and ultrasound imaging were ordered Labs with leukocytosis, normal liver function, normal lipase, normal amylase, hyperglycemia Ultrasound with cholelithiasis no signs of acute cholecystitis Patient was reevaluated and reports feeling much better after medications. Pain has improved. Patient is comfortable with the plan for discharge home and outpatient follow-up with general surgery [place] modifications were again discussed, return parameters discussed patient discharged home in stable condition. - Lab Data Result diagrams: 01/03/19 04:00 01/03/19 04:00 Lab Results 01/03/19 01/03/19 01/03/19 Range/Units 04:00 04:00 04:00 WBC 11.2 H (3.8-10.6) k/uL RBC 5.77 (4.30-5.90) m/uL Hgb 16.6 (13.0-17.5) gm/dL Hct 50.6 (39.0-53.0) % MCV 87.7 (80.0-100.0) fL MCH 28.7 (25.0-35.0) pg MCHC 32.8 (31.0-37.0) g/dL RDW 13.2 (11.5-15.5) % Plt Count 269 (150-450) k/uL Neutrophils % 67 % Lymphocytes % 21 % Monocytes % 5 % Eosinophils % 5 % Basophils % 1 % Neutrophils # 7.5 (1.3-7.7) k/uL Lymphocytes # 2.4 (1.0-4.8) k/uL Monocytes # 0.5 (0-1.0) k/uL Eosinophils # 0.6 (0-0.7) k/uL Basophils # 0.1 (0-0.2) k/uL Sodium 136 L (137-145) mmol/L Potassium 4.3 (3.5-5.1) mmol/L Chloride 100 (98-107) mmol/L Carbon Dioxide 28 (22-30) mmol/L Anion Gap 8 mmol/L BUN 15 (9-20) mg/dL Creatinine 0.89 (0.66-1.25) mg/dL Est GFR (CKD-EPI)AfAm >90 (>60 ml/min/1.73 sqM) Est GFR (CKD-EPI)NonAf >90 (>60 ml/min/1.73 sqM) Glucose 314 H (74-99) mg/dL Calcium 9.5 (8.4-10.2) mg/dL Total Bilirubin 0.4 (0.2-1.3) mg/dL AST 28 (17-59) U/L ALT 58 (21-72) U/L Alkaline Phosphatase 64 (38-126) U/L Total Protein 7.2 (6.3-8.2) g/dL Albumin 4.1 (3.5-5.0) g/dL Amylase <30 L (30-110) U/L Lipase 183 (23-300) U/L Urine Color Yellow Urine Appearance Clear (Clear) Urine pH 5.5 (5.0-8.0) Ur Specific [place] 1.042 H (1.001-1.035) Urine Protein Trace H (Negative) Urine Glucose (UA) 4+ H (Negative) Urine Ketones Trace H (Negative) Urine Blood Negative (Negative) Urine Nitrite Negative (Negative) Urine Bilirubin Negative (Negative) Urine Urobilinogen <2.0 (<2.0) mg/dL Ur Leukocyte Esterase Negative (Negative) Disposition Clinical Impression: Symptomatic cholelithiasis Disposition: HOME SELF-CARE Condition: Stable Instructions (If sedation given, give patient instructions): Biliary Colic (ED), Gallstones (ED) Is patient prescribed a controlled substance at d/c from ED?: No Referrals: Rashaad Chau MD [Primary Care Provider] - 1-2 days Jimmy Green MD [Medical Doctor] - 1-2 days Preston Grimm MD [STAFF PHYSICIAN] - 1-2 days Abigail Osorio MD [STAFF PHYSICIAN] - 1-2 days
[2019-01-03] MEDS ORDERED: diphenhydrAMINE 50 MG/ML 1 ML VIAL IVP PRN (04:28)
[2019-01-03] MEDS ORDERED: diphenhydrAMINE 50 MG/ML 1 ML VIAL IVP STA (04:30)
[2019-01-03 05:48] VITALS: PULSE 89
--- NOTE | 2019-01-03 05:57 | US ---
EXAM: US Abdomen Limited, Right Upper Quadrant CLINICAL HISTORY: ITS.REASON US Reason: RUQ pain - known stones TECHNIQUE: Real-time ultrasound of the right upper quadrant with image documentation. COMPARISON: No relevant prior studies available. FINDINGS: Limitations: Study limited due to body habitus and overlying bowel gas. Liver: Diffuse coarse increased echotexture in the liver likely fatty infiltration. Liver measures 20.9 cm. No intrahepatic bile duct dilation. Gallbladder: Gallbladder wall measures 0.22 cm. Gallstone near the neck of the gallbladder measuring 2.1 x 1.8 x 1.1 cm. Mild sludge in the gallbladder. No evidence for sonographic Simmons sign. No pericholecystic fluid. Common bile duct: Common bile duct obscured by overlying bowel gas and suboptimally visualized. Pancreas: Region of the pancreas obscured by overlying bowel gas. Right kidney: Right kidney measures 12.3 x 6.1 x 5.2 cm. No stones. No hydronephrosis. IMPRESSION: 1. Cholelithiasis. 2. No definite sonographic evidence for acute cholecystitis. 3. Hepatomegaly. 4. Common bile duct not well-visualized. Suboptimal study due to overlying bowel gas and body habitus. No intrahepatic ductal dilatation.
[2019-01-03 06:49] VITALS: BP 127/87; TEMP 98.6
== END 2019-01-03 06:52 | disposition home or self-care (01) ==
LOC: EC 03:25
DX: K80.20 Calculus of gallbladder without cholecystitis without obstruction (principal); D72.829 Elevated white blood cell count, unspecified; E11.65 Type 2 diabetes mellitus with hyperglycemia; E66.01 Morbid (severe) obesity due to excess calories; F41.9 Anxiety disorder, unspecified; G47.30 Sleep apnea, unspecified; F17.200 Nicotine dependence, unspecified, uncomplicated; Z79.84 Long term (current) use of oral hypoglycemic drugs; Z79.899 Other long term (current) drug therapy; Z88.6 Allergy status to analgesic agent; Z88.8 Allergy status to other drugs, medicaments and biological substances; Z99.89 Dependence on other enabling machines and devices; Z68.43 Body mass index [BMI] 50.0-59.9, adult
CPT/HCPCS: 36415; 80053; 82150; 83690; 85025; 81003; 76705; 96374; 96375 ×2; 96361; 99284; J2270; J1200; J2405

== ENCOUNTER 2019-09-09 07:11 | Observation (INO) | payer OTHER ==
[2019-09-09] MEDS ORDERED: SODIUM CHLORIDE 0.9% 1,000 ML IV STA ×2 (07:45→08:43)
[2019-09-09] MEDS ORDERED: METOCLOPRAMIDE 5 MG/ML 2 ML VIAL IVP STA (07:45)
[2019-09-09] MEDS ORDERED: HYDROmorphone 1 MG/ML 1 ML SYRINGE IVP STA (07:46)
--- NOTE | 2019-09-09 07:54 | ED ---
General Adult HPI - General Chief complaint: Abdominal Pain Stated complaint: Abdominal Time Seen by Provider: 09/09/19 07:36 Source: patient, RN notes reviewed Mode of arrival: ambulatory Limitations: no limitations - History of Present Illness Initial comments: Patient is a pleasant 34-year-old male presenting to the emergency Department with complaints of abdominal discomfort. Onset of symptoms was several hours prior to arrival. Patient has had similar symptoms previously associated with his gallbladder problems. Patient has had previous ultrasound showing gallstones. Patient was supposed to have surgical removal however this has been postponed secondary to Salas virus. Patient does have nausea and has felt sweaty. Patient has vomited a couple times. No constipation or diarrhea. Discomfort is mostly the upper/right abdomen. - Related Data Home Medications Medication Instructions Recorded Confirmed Pantoprazole Sodium [Protonix] 40 mg PO DAILY 01/14/17 07/31/19 ALPRAZolam [Xanax] 0.25 mg PO BID 07/31/19 07/31/19 ALPRAZolam [Xanax] 0.5 mg PO 1500 07/31/19 07/31/19 ARIPiprazole [Abilify] 7.5 mg PO DAILY 07/31/19 07/31/19 Citalopram Hydrobromide 40 mg PO DAILY 07/31/19 07/31/19 [Citalopram HBr] Insulin Glargine,Hum.rec.anlog 35 unit SQ HS 07/31/19 07/31/19 [Basaglar Kwikpen U-100] Metoprolol Tartrate [Lopressor] 25 mg PO DAILY 07/31/19 07/31/19 glipiZIDE [Glucotrol] 10 mg PO TID 07/31/19 07/31/19 metFORMIN HCL 1,000 mg PO BID 07/31/19 07/31/19 Previous Rx's Medication Instructions Recorded Lisinopril [Zestril] 10 mg PO DAILY #30 tab 11/01/15 Allergies Allergy/AdvReac Type Severity Reaction Status Date / Time naproxen Allergy Rash/Hives Verified 07/31/19 09:03 Qezxhah-Idi-Kvr Reductase Allergy "internal Verified 07/31/19 09:03 Inhibitor hives and cramps" simvastatin AdvReac Abdominal Verified 07/31/19 09:03 Pain Review of Systems ROS Statement: Those systems with pertinent positive or pertinent negative responses have been documented in the HPI. ROS Other: All systems not noted in ROS Statement are negative. Constitutional: Denies: fever Eyes: Denies: eye pain ENT: Denies: ear pain Respiratory: Denies: cough Cardiovascular: Denies: chest pain Endocrine: Denies: fatigue Gastrointestinal: Reports: abdominal pain, nausea, vomiting Genitourinary: Denies: dysuria Musculoskeletal: Denies: back pain Skin: Denies: rash Neurological: Denies: weakness Past Medical History Past Medical History: Diabetes Mellitus, GERD/Reflux, Hypertension, Sleep Apnea/CPAP/BIPAP Additional Past Medical History / Comment(s): migraines, hx palpiations, not using CPAP, gallstones, "pituitary brain tumor" History of Any Multi-Drug Resistant Organisms: None Reported Additional Past Surgical History / Comment(s): wisdom teeth Past Anesthesia/Blood Transfusion Reactions: Previous Problems w/ Anesthesia Additional Past Anesthesia/Blood Transfusion Reaction / Comment(s): has a hard time breathing when lying flat or on side Past Psychological History: Anxiety, Depression, Panic Disorder, Schizophrenia Smoking Status: Current every day smoker Past Alcohol Use History: None Reported Past Drug Use History: Marijuana - Past Family History Mother Family Medical History: No Reported History Additional Family Medical History / Comment(s): . General Exam Limitations: no limitations General appearance: alert, in no apparent distress Eye exam: Present: normal appearance Respiratory exam: Present: normal lung sounds bilaterally Cardiovascular Exam: Present: regular rate, normal rhythm Expanded Peripheral pulses: 2+: Dorsalis Pedis (R), Dorsalis Pedis (L) GI/Abdominal exam: Present: soft, tenderness (Moderate tenderness, severe right upper quadrant), guarding. Absent: distended, rebound, rigid Extremities exam: Present: normal inspection Neurological exam: Present: alert Psychiatric exam: Present: normal affect, normal mood Skin exam: Present: normal color Course Vital Signs 09/09/19 07:17 Temperature 98 F Pulse Rate 98 Respiratory 18 Rate Blood Pressure 182/79 O2 Sat by Pulse 98 Oximetry EKG Findings - EKG Comments: EKG Findings:: Normal sinus rhythm at 90. PA 140. QRS 94. QT 374. QTC 457. Right axis. Normal QRS. No acute ST change. Medical Decision Making - Medical Decision Making Patient reevaluated and feels somewhat better. Patient states discomfort 6/10. Nausea resolved. Abdomen still with moderate tenderness. Case discussed with Dr. Marin who will admit his patient. He requests antibiotics. - Lab Data Result diagrams: 09/09/19 07:48 09/09/19 07:48 Lab Results 09/09/19 09/09/19 09/09/19 Range/Units 07:48 07:48 07:48 WBC 11.7 H (3.8-10.6) k/uL RBC 5.51 (4.30-5.90) m/uL Hgb 15.6 (13.0-17.5) gm/dL Hct 48.5 (39.0-53.0) % MCV 87.9 (80.0-100.0) fL MCH 28.3 (25.0-35.0) pg MCHC 32.2 (31.0-37.0) g/dL RDW 13.5 (11.5-15.5) % Plt Count 291 (150-450) k/uL Neutrophils % 82 % Lymphocytes % 12 % Monocytes % 3 % Eosinophils % 2 % Basophils % 0 % Neutrophils # 9.6 H (1.3-7.7) k/uL Lymphocytes # 1.4 (1.0-4.8) k/uL Monocytes # 0.4 (0-1.0) k/uL Eosinophils # 0.2 (0-0.7) k/uL Basophils # 0.0 (0-0.2) k/uL PT 10.4 (9.0-12.0) sec INR 1.0 (<1.2) APTT 23.9 (22.0-30.0) sec Sodium 132 L (137-145) mmol/L Potassium 5.3 H (3.5-5.1) mmol/L Chloride 101 (98-107) mmol/L Carbon Dioxide 22 (22-30) mmol/L Anion Gap 9 mmol/L BUN 17 (9-20) mg/dL Creatinine 0.77 (0.66-1.25) mg/dL Est GFR (CKD-EPI)AfAm >90 (>60 ml/min/1.73 sqM) Est GFR (CKD-EPI)NonAf >90 (>60 ml/min/1.73 sqM) Glucose 386 H (74-99) mg/dL Calcium 9.4 (8.4-10.2) mg/dL Total Bilirubin 0.5 (0.2-1.3) mg/dL AST 36 (17-59) U/L ALT 56 H (4-49) U/L Alkaline Phosphatase 57 (38-126) U/L Total Protein 7.5 (6.3-8.2) g/dL Albumin 4.0 (3.5-5.0) g/dL Amylase 36 (30-110) U/L Lipase 138 (23-300) U/L - Radiology Data Radiology results: image reviewed Disposition Clinical Impression: Cholelithiasis Disposition: ADMITTED IP TO THIS [facility] Is patient prescribed a controlled substance at d/c from ED?: No Referrals: Rashaad Chau MD [Primary Care Provider] - 1-2 days Decision Time: 08:40
[2019-09-09 08:01] LABS: Basophils % (A) 0 %; Eosinophils # (A) 0.2 k/uL (0-0.7); Eosinophils % (A) 2 %; HCT 48.5 % (39.0-53.0); HGB 15.6 gm/dL (13.0-17.5); Lymphocytes # (A) 1.4 k/uL (1.0-4.8); Lymphocytes % (A) 12 %; MCH 28.3 pg (25.0-35.0); MCHC 32.2 g/dL (31.0-37.0); MCV 87.9 fL (80.0-100.0); Mean Platelet Volume 7.7; Monocytes # (A) 0.4 k/uL (0-1.0); Monocytes % (A) 3 %; Neutrophils # (A) 9.6 k/uL (1.3-7.7); Neutrophils % (A) 82 %; Platelet Count 291 k/uL (150-450); RBC 5.51 m/uL (4.30-5.90); RDW 13.5 % (11.5-15.5); WBC 11.7 k/uL (3.8-10.6)
[2019-09-09 08:11] LABS: ALT 56 U/L (4-49); AST 36 U/L (17-59); African American GFR (CKD) >90 (>60 ml/min/1.73 sqM); Alkaline Phosphatase 57 U/L (38-126); Amylase 36 U/L (30-110); Anion Gap 9 mmol/L; Blood Urea Nitrogen 17 mg/dL (9-20); Calcium 9.4 mg/dL (8.4-10.2); Carbon Dioxide 22 mmol/L (22-30); Chloride 101 mmol/L (98-107); Glucose 386 mg/dL (74-99); Non-African American GFR(CKD) >90 (>60 ml/min/1.73 sqM); Sodium 132 mmol/L (137-145); Total Bilirubin 0.5 mg/dL (0.2-1.3); Total Protein 7.5 g/dL (6.3-8.2)
[2019-09-09 08:18] LABS: Potassium 5.3 mmol/L (3.5-5.1)
[2019-09-09 08:23] LABS: Partial Thromboplastin Time 23.9 sec (22.0-30.0); Prothrombin Time 10.4 sec (9.0-12.0)
[2019-09-09] MEDS ORDERED: INSULIN REGULAR 100 UNIT/ML VIAL IV ONE (08:27)
--- NOTE | 2019-09-09 08:32 | XR ---
EXAMINATION TYPE: XR KUB DATE OF EXAM: 09/09/2019 COMPARISON: NONE HISTORY: Pain TECHNIQUE: One view abdominal series FINDINGS: The osseous structures are intact. The bowel gas pattern is nonspecific. Lung bases are clear. Scle rotic lesion involving the left femoral greater trochanter could been the basis of a bone island. IMPRESSION: 1. Nonspecific abdomen.
[2019-09-09] MEDS ORDERED: HYDROmorphone 1 MG/ML 1 ML SYRINGE IVP PRN (08:40)
[2019-09-09] MEDS ORDERED: NALOXONE 0.4 MG/ML 1 ML VIAL IV PRN (08:40)
[2019-09-09] MEDS ORDERED: AMPICILLIN-SULBACTAM 3 GM in SODIUM CHLORIDE 0.9% 100 ML IVPB STA (08:42)
[2019-09-09] MEDS ORDERED: PANTOPRAZOLE 40 MG/10 ML VIAL IV SCH (09:00)
[2019-09-09] MEDS: ONDANSETRON 4 MG/2 ML VIAL IVP PRN ×2 (09:49→12:37)
[2019-09-09] MEDS ORDERED: LACTATED RINGERS 1,000 ML IV ONE ×2 (09:49→11:52)
[2019-09-09 10:01] LABS: Glucose,Whole Blood 342 mg/dL (75-99)
[2019-09-09] MEDS ORDERED: INSULIN ASPART (NovoLOG) 100 UNIT/ML VIAL SQ ONE (10:27)
[2019-09-09] MEDS ORDERED: fentaNYL (PF) 50 MCG/ML 2 ML AMP ONE (10:40)
[2019-09-09] MEDS ORDERED: ROCURONIUM BROMIDE 10 MG/ML 5 ML VIAL IV ONE (10:40)
[2019-09-09] MEDS ORDERED: GLYCOPYRROLATE 0.2 MG/ML 2 ML VIAL ONE (10:40)
[2019-09-09] MEDS ORDERED: SUCCINYLCHOLINE CHLORIDE VIAL 200 MG/10 ML VIAL IV ONE (10:40)
[2019-09-09] MEDS ORDERED: MIDAZOLAM 2 MG/2 ML VIAL ONE (10:40)
[2019-09-09] MEDS ORDERED: NEOSTIGMINE 1 MG/ML 10 ML VIAL ONE (10:40)
[2019-09-09] MEDS ORDERED: LIDOCAINE 1% INJ 10MG/ML (20 ML MDV) ONE (10:40)
[2019-09-09] MEDS ORDERED: PROPOFOL 10 MG/ML 20 ML VIAL IV ONE (10:40)
[2019-09-09] MEDS ORDERED: HEPARIN SODIUM,PORCINE 5,000 UNIT/ML 1 ML VIAL SQ ONE (10:43)
[2019-09-09] MEDS ORDERED: SODIUM CHLORIDE 0.9% 100 ML with ceFAZolin 2,000 MG IV ONE ×2 (10:49)
--- NOTE | 2019-09-09 10:49 | P.GSHP ---
History of Present Illness H&P Date: 09/09/19 Chief Complaint: Acute calculus cholecystitis Patient came to the hospital complaining of pain that began around 11 PM last night. Pain was in the right upper quadrant and epigastric region. This was severe. This was associate with mild difficulty in breathing with pain on inspiration. Patient has had similar episodes from his known gallbladder disease. He was seen by myself in May and had cholecystectomy scheduled for June. Patient describes nausea. No change in the color of his skin urine or stool. White blood cell count elevated. No repeat ultrasound. Patient still having pain. Apparently in the emergency department was difficult to control the patient's discomfort. - Review of Systems Comment: The patient denies any acute changes in vision or hearing, no dysphagia or odynophagia, no chest pain no dysuria or hematuria, no headache, no runny nose, no rectal bleeding or melena, no unexplained weight loss Past Medical History Past Medical History: Diabetes Mellitus, GERD/Reflux, Hypertension, Sleep Apnea/CPAP/BIPAP Additional Past Medical History / Comment(s): migraines, hx palpiations, not using CPAP, gallstones, "pituitary brain tumor" History of Any Multi-Drug Resistant Organisms: None Reported Additional Past Surgical History / Comment(s): wisdom teeth Past Anesthesia/Blood Transfusion Reactions: Previous Problems w/ Anesthesia Additional Past Anesthesia/Blood Transfusion Reaction / Comment(s): has a hard time breathing when lying flat or on side Past Psychological History: Anxiety, Depression, Panic Disorder, Schizophrenia Smoking Status: Current every day smoker Past Alcohol Use History: None Reported Past Drug Use History: Marijuana - Past Family History Mother Family Medical History: No Reported History Additional Family Medical History / Comment(s): . Medications and Allergies Home Medications Medication Instructions Recorded Confirmed Type Lisinopril [Zestril] 10 mg PO DAILY #30 tab 11/01/15 09/09/19 Rx Pantoprazole Sodium [Protonix] 40 mg PO DAILY 01/14/17 09/09/19 History ALPRAZolam [Xanax] 0.5 mg PO DAILY@1500 07/31/19 09/09/19 History ARIPiprazole [Abilify] 7.5 mg PO DAILY 07/31/19 09/09/19 History Citalopram Hydrobromide 40 mg PO DAILY 07/31/19 09/09/19 History [Citalopram HBr] Insulin Glargine,Hum.rec.anlog 35 unit SQ HS 07/31/19 09/09/19 History [Basaglar Kwikpen U-100] Metoprolol Tartrate [Lopressor] 25 mg PO DAILY 07/31/19 09/09/19 History glipiZIDE [Glucotrol] 10 mg PO TID 07/31/19 09/09/19 History metFORMIN HCL 1,000 mg PO BID 07/31/19 09/09/19 History ALPRAZolam [Xanax] 0.25 mg PO BID@0900,2100 09/09/19 09/09/19 History Acetaminophen-Codeine 300-30mg 1 - 2 tab PO Q6H PRN 09/09/19 09/09/19 History [Tylenol w/codeine #3] Penicillin V Potassium [Pen Vee K] 500 mg PO TID 09/09/19 09/09/19 History Allergies Allergy/AdvReac Type Severity Reaction Status Date / Time naproxen Allergy Rash/Hives Verified 09/09/19 10:38 Ayiandq-Xyx-Siv Reductase Allergy "internal Verified 09/09/19 10:38 Inhibitor hives and cramps" simvastatin AdvReac Abdominal Verified 09/09/19 10:38 Pain Surgical - Exam Vital Signs Temp Pulse Resp BP Pulse Ox 98 F 98 18 182/79 98 09/09/19 07:17 09/09/19 07:17 09/09/19 07:17 09/09/19 07:17 09/09/19 07:17 Physical exam: General: Well-developed, well-nourished HEENT: Normocephalic, sclerae nonicteric Abdomen: Right upper quadrant tenderness, nondistended Extremities: No edema Neuro: Alert and oriented Results - Labs 09/09/19 07:48 09/09/19 07:48 Abnormal Lab Results - Last 24 Hours (Table) 09/09/19 09/09/19 09/09/19 Range/Units 07:48 07:48 10:00 WBC 11.7 H (3.8-10.6) k/uL Neutrophils # 9.6 H (1.3-7.7) k/uL Sodium 132 L (137-145) mmol/L Potassium 5.3 H (3.5-5.1) mmol/L Glucose 386 H (74-99) mg/dL POC Glucose (mg/dL) 342 H (75-99) mg/dL ALT 56 H (4-49) U/L Diabetes panel 09/09/19 Range/Units 07:48 Sodium 132 L (137-145) mmol/L Potassium 5.3 H (3.5-5.1) mmol/L Chloride 101 (98-107) mmol/L Carbon Dioxide 22 (22-30) mmol/L BUN 17 (9-20) mg/dL Creatinine 0.77 (0.66-1.25) mg/dL Glucose 386 H (74-99) mg/dL Calcium 9.4 (8.4-10.2) mg/dL AST 36 (17-59) U/L ALT 56 H (4-49) U/L Alkaline Phosphatase 57 (38-126) U/L Total Protein 7.5 (6.3-8.2) g/dL Albumin 4.0 (3.5-5.0) g/dL Calcium panel 09/09/19 Range/Units 07:48 Calcium 9.4 (8.4-10.2) mg/dL Albumin 4.0 (3.5-5.0) g/dL Pituitary panel 09/09/19 Range/Units 07:48 Sodium 132 L (137-145) mmol/L Potassium 5.3 H (3.5-5.1) mmol/L Chloride 101 (98-107) mmol/L Carbon Dioxide 22 (22-30) mmol/L BUN 17 (9-20) mg/dL Creatinine 0.77 (0.66-1.25) mg/dL Glucose 386 H (74-99) mg/dL Calcium 9.4 (8.4-10.2) mg/dL Adrenal panel 09/09/19 Range/Units 07:48 Sodium 132 L (137-145) mmol/L Potassium 5.3 H (3.5-5.1) mmol/L Chloride 101 (98-107) mmol/L Carbon Dioxide 22 (22-30) mmol/L BUN 17 (9-20) mg/dL Creatinine 0.77 (0.66-1.25) mg/dL Glucose 386 H (74-99) mg/dL Calcium 9.4 (8.4-10.2) mg/dL Total Bilirubin 0.5 (0.2-1.3) mg/dL AST 36 (17-59) U/L ALT 56 H (4-49) U/L Alkaline Phosphatase 57 (38-126) U/L Total Protein 7.5 (6.3-8.2) g/dL Albumin 4.0 (3.5-5.0) g/dL Assessment and Plan (1) Acute calculous cholecystitis Narrative/Plan: 34-year-old male with underlying history of gallbladder disease presents with acute calculus cholecystitis. We'll proceed with laparoscopic, possible open cholecystectomy at this time. Possible discharge later today. Risks of bleeding, infection, bile leak, bile duct injury, retained common bile duct stone, trocar injury, conversion to an open procedure, hernia, anesthesia related complications were reviewed. The patient understands and wishes to proceed. Current Visit: Yes Status: Acute Code(s): K80.00 - CALCULUS OF GALLBLADDER W ACUTE CHOLECYST W/O OBSTRUCTION SNOMED Code(s): 73817155376039
[2019-09-09] MEDS ORDERED: BUPIVACAIN-EPI 0.25%-1:200,000 30 ML VIAL SQ ONE ×2 (11:12)
[2019-09-09] MEDS ORDERED: HYDROmorphone 0.5 MG/0.5 ML SYRINGE IVP PRN (12:22)
[2019-09-09] MEDS ORDERED: HYDROcodone/APAP 5-325MG 1 EACH TAB PO PRN (12:22)
[2019-09-09] MEDS: HYDROmorphone 1 MG/ML 1 ML SYRINGE IVP ONE ×2 (12:23→12:34)
[2019-09-09 12:24] LABS: Glucose,Whole Blood 295 mg/dL (75-99)
--- NOTE | 2019-09-09 12:25 | P.OP ---
Date of Procedure: 09/09/19 Procedure(s) Performed: PREOPERATIVE DIAGNOSIS: Acute calculus cholecystitis POSTOPERATIVE DIAGNOSIS: Same PROCEDURE: Laparoscopic cholecystectomy SURGEON: Peter EBL: Minimal see anesthesia record ANESTHESIA: Gen. COMPLICATIONS: None OPERATIVE PROCEDURE: The patient was brought and placed on the operating room table in the supine position. The patient was placed under general anesthesia at that time. The abdomen was prepped and draped in the usual sterile fashion. A small horizontal supraumbilical incision was made. The fascia was grasped with the Amparo forceps. The fascia was retracted anteriorly. The Veress needle was advanced into the peritoneal cavity. The saline drop test was normal. Insufflation took place up to 15 mmHg. A 5 mm optical trocar was advanced and the peritoneal cavity. 2 additional 5 mm trochars were placed in the right upper quadrant under direct visualization. A 12 mm trocar was advanced into the epigastric incision site. The gallbladder was distended. In order to grasp the gallbladder a small opening was made and the contents were evacuated. The gallbladder wall was thickened with edema. The gallbladder was retracted superiorly and laterally. The peritoneum overlying the infundibulum was bluntly dissected. The patient's cystic duct was visualized. The junction between the cystic duct common and hepatic duct was identified. The cystic duct was then divided after placement of 3 12 mm clips on the patient's side and one on the specimen side. The cystic artery was identified and clipped as well. A small vessel was seen along the gallbladder fossa and clipped as well. The gallbladder was then removed from the liver bed using electrocautery. Pneumoperitoneum was evacuated using a suction device. The gallbladder was then removed from the epigastric trocar site with an Endo Catch bag. Re-insufflation took place after the 12 mm trocar was replaced. The gallbladder fossa was irrigated with saline. There was no evidence of any bleeding or biliary drainage seen. The fascia at the 12 millimeter site was closed using a Adelfo- Basim 0 Vicryl stitch. The trochars were then removed. The skin at all 4 sites was closed using a 4-0 Monocryl stitch. Skin glue was utilized on the incision sites. At the end of this procedure the sponge and needle counts were correct. DISPOSITION: Stable to the recovery room
[2019-09-09] MEDS ORDERED: KETOROLAC 30 MG/ML 1 ML VIAL IVP ONE (12:39)
[2019-09-09 15:31] VITALS: RESP 14
[2019-09-09 15:32] VITALS: BP 128/77; PULSE 96; TEMP 98.3
[2019-09-09] MEDS ORDERED: AMPICILLIN-SULBACTAM 3 GM in SODIUM CHLORIDE 0.9% 100 ML IVPB SCH (16:00)
[2019-09-09] MEDS ORDERED: HEPARIN SODIUM,PORCINE 5,000 UNIT/ML 1 ML VIAL SQ SCH (19:00)
[2019-09-09] MEDS ORDERED: DOCUSATE 100 MG CAP PO SCH (21:00)
== END 2019-09-09 19:47 | disposition home or self-care (01) ==
LOC: EC 07:11 → 5NMEDONC 08:40
PROVIDERS: ADMIT Surgery; ATTEND Surgery
DX: K80.12 Calculus of gallbladder with acute and chronic cholecystitis without obstruction (principal); E11.9 Type 2 diabetes mellitus without complications; K21.9 Gastro-esophageal reflux disease without esophagitis; I10 Essential (primary) hypertension; G43.909 Migraine, unspecified, not intractable, without status migrainosus; F41.9 Anxiety disorder, unspecified; F32.9 Major depressive disorder, single episode, unspecified; F20.9 Schizophrenia, unspecified; G47.33 Obstructive sleep apnea (adult) (pediatric); D49.7 Neoplasm of unspecified behavior of endocrine glands and other parts of nervous system; F17.210 Nicotine dependence, cigarettes, uncomplicated; E66.01 Morbid (severe) obesity due to excess calories; Z68.42 Body mass index [BMI] 45.0-49.9, adult; F41.0 Panic disorder [episodic paroxysmal anxiety]; Z79.899 Other long term (current) drug therapy; Z79.4 Long term (current) use of insulin; Z88.8 Allergy status to other drugs, medicaments and biological substances
CPT/HCPCS: 47562; 99285; 36415; 93005; 88304; 80053; 82150; 83605; 83690; 85025; 85610; 85730; 87040; 74018; G0378; J1644; J2765; J2405; J0690; J1885; J1170; J0295; C9113

== ENCOUNTER 2021-04-24 12:54 | Emergency (ER) | payer MEDICARE, OTHER ==
[2021-04-24 13:03] VITALS: RESP 18; TEMP 99.6
[2021-04-24] MEDS ORDERED: SODIUM CHLORIDE 0.9% 50 ML IVPB ONE (15:45)
[2021-04-24] MEDS ORDERED: CASIRIVIMAB (REGN10933) (EUA) 600 MG, IMDEVIMAB (REGN10987) (EUA) 600 MG in SODIUM CHLO... IVPB ONE (16:00)
--- NOTE | 2021-04-24 16:12 | ED ---
General Adult HPI - General Chief complaint: Upper Respiratory Infection Stated complaint: covid + dr sent him for antibodies Time Seen by Provider: 04/24/21 14:44 Source: patient, RN notes reviewed, old records reviewed Mode of arrival: ambulatory Limitations: no limitations - History of Present Illness Initial comments: Patient was evaluated when he was placed in a room. Patient is a 36-year-old male with past medical history remarkable for diabetes who presents emergency Department Covid-positive seeking monoclonal antibody therapy. Patient states that symptoms and test were on April 20, 4 days ago. He was not vaccinated. He endorses upper respiratory symptoms, mild cough that is not productive. Denies nausea, vomiting, diarrhea. Endorses sick contacts. Denies chest pain. Has no other acute complaints at this time. - Related Data Home Medications Medication Instructions Recorded Confirmed Pantoprazole Sodium [Protonix] 40 mg PO DAILY 01/14/17 09/09/19 ALPRAZolam [Xanax] 0.5 mg PO DAILY@1500 07/31/19 09/09/19 ARIPiprazole [Abilify] 7.5 mg PO DAILY 07/31/19 09/09/19 Citalopram Hydrobromide 40 mg PO DAILY 07/31/19 09/09/19 [Citalopram HBr] Insulin Glargine,Hum.rec.anlog 35 unit SQ HS 07/31/19 09/09/19 [Basaglar Kwikpen U-100] Metoprolol Tartrate [Lopressor] 25 mg PO DAILY 07/31/19 09/09/19 glipiZIDE [Glucotrol] 10 mg PO TID 07/31/19 09/09/19 metFORMIN HCL [Glucophage] 1,000 mg PO BID 07/31/19 09/09/19 ALPRAZolam [Xanax] 0.25 mg PO BID@0900,2100 09/09/19 09/09/19 Acetaminophen-Codeine 300-30mg 1 - 2 tab PO Q6H PRN 09/09/19 09/09/19 [Tylenol w/codeine #3] Penicillin V Potassium [Pen Vee K] 500 mg PO TID 09/09/19 09/09/19 Previous Rx's Medication Instructions Recorded lisinopriL [Zestril] 10 mg PO DAILY #30 tab 11/01/15 Acetaminophen [Tylenol Extra 500 mg PO Q6HR 7 Days #28 packet 04/24/21 Strength] Albuterol Inhaler [Ventolin Hfa 1 puff INHALATION RT-QID #8 gm 04/24/21 Inhaler] Allergies Allergy/AdvReac Type Severity Reaction Status Date / Time naproxen Allergy Rash/Hives Verified 04/24/21 13:03 Ikbxcrk-Hmp-Iyj Reductase Allergy "internal Verified 04/24/21 13:03 Inhibitor hives and cramps" simvastatin AdvReac Abdominal Verified 04/24/21 13:03 Pain Review of Systems ROS Statement: Those systems with pertinent positive or pertinent negative responses have been documented in the HPI. Review of Systems: CONST: Denies fever EYES: Denies blurry vision ENT: Endorses nasal congestion. C/V: Denies Chest pain RESP: Endorses mild shortness breath, cough GI: Denies abdominal pain : Denies dysuria SKIN: Denies rash. MSK: Denies joint pain. NEURO: Denies headache ROS Other: All systems not noted in ROS Statement are negative. Past Medical History Past Medical History: Diabetes Mellitus, GERD/Reflux, Hypertension, Sleep Apnea/CPAP/BIPAP Additional Past Medical History / Comment(s): migraines, hx palpiations, not using CPAP, gallstones, "pituitary brain tumor" History of Any Multi-Drug Resistant Organisms: None Reported Past Surgical History: Cholecystectomy Additional Past Surgical History / Comment(s): wisdom teeth Past Anesthesia/Blood Transfusion Reactions: Previous Problems w/ Anesthesia Additional Past Anesthesia/Blood Transfusion Reaction / Comment(s): has a hard time breathing when lying flat or on side Past Psychological History: Anxiety, Depression, Panic Disorder, Schizophrenia Smoking Status: Never smoker Past Alcohol Use History: None Reported Past Drug Use History: Marijuana - Past Family History Mother Family Medical History: No Reported History Additional Family Medical History / Comment(s): . General Exam - General Exam Comments Initial Comments: General: Appears in no acute distress. HEAD: Normal with no signs of head trauma. EYES: PERRLA, EOMI, conjunctiva normal, no discharge. ENT: Hearing grossly intact, normal oropharynx. Rhinorrhea present. RESPIRATORY: Clear breath sounds bilaterally. No wheezes, rales, or rhonchi. Not hypoxic. No increased work of breathing. C/V: Regular rate and rhythm. S1 and S2 auscultated, no edema, peripheral pulses 2+ and intact throughout ABD: Abd is soft, nontender, nondistended EXT: Normal range of motion, no obvious deformity SKIN: No rashes or lesions observed on exposed skin. NEURO: Alert and oriented 4. Limitations: no limitations Course Vital Signs 04/24/21 04/24/21 12:59 17:42 Temperature 99.6 F 99.6 F Pulse Rate 102 H 97 Respiratory 18 18 Rate Blood Pressure 153/94 144/90 O2 Sat by Pulse 94 L 95 Oximetry Medical Decision Making - Medical Decision Making Based on the patient's presentation and physical exam, he is COVID-19 negative an outpatient testing. He is not hypoxic. I do not believe that require imaging or laboratory studies at this time. He otherwise appears nontoxic with mild respiratory symptoms. Patient is requesting monoclonal antibody therapy. He consented to treatment. He will be treated and then observed for a period time for any reaction. Patient was in agreement with this plan. Patient tolerated the therapy well. Patient will be discharged home in stable condition. I will provide the patient with a prescription for Tylenol, albuterol inhaler. I instructed the patient to follow up with their PCP in the next 3 days. I explained that the patient should return to the emergency department if they experience any worsening symptoms. Strict return precautions were discussed with the patient. The patient expressed understanding of these instructions. I answered all questions that the patient had. The patient was discharged home in fair condition with their prescriptions and follow up information. Disposition Clinical Impression: COVID-19 virus infection Disposition: HOME SELF-CARE Condition: Fair Instructions (If sedation given, give patient instructions): Coronavirus Disease 2019 (COVID-19) Prescriptions: Acetaminophen [Tylenol Extra Strength] 500 mg PO Q6HR 7 Days #28 packet Albuterol Inhaler [Ventolin Hfa Inhaler] 1 puff INHALATION RT-QID #8 gm Is patient prescribed a controlled substance at d/c from ED?: No Referrals: Rashaad Chau MD [Primary Care Provider] - 1-2 days
[2021-04-24 17:43] VITALS: BP 144/90; PULSE 97
== END 2021-04-24 17:43 | disposition home or self-care (01) ==
LOC: EC 12:54
DX: U07.1 COVID-19 (principal); E11.9 Type 2 diabetes mellitus without complications; I10 Essential (primary) hypertension; K21.9 Gastro-esophageal reflux disease without esophagitis; Z88.8 Allergy status to other drugs, medicaments and biological substances; Z88.6 Allergy status to analgesic agent; Z79.4 Long term (current) use of insulin; Z79.899 Other long term (current) drug therapy
CPT/HCPCS: 99283; 96365; Q0243

== ENCOUNTER 2022-04-15 20:06 | Emergency (ER) | payer MEDICARE, OTHER ==
[2022-04-15 20:14] VITALS: TEMP 98.4
[2022-04-15] MEDS ORDERED: SODIUM CHLORIDE 0.9% 1,000 ML IV STA (21:44)
--- NOTE | 2022-04-15 21:52 | ED ---
SOB HPI - General Chief Complaint: Shortness of Breath Stated Complaint: SOB/ear pain Time Seen by Provider: 04/15/22 21:36 Source: patient, RN notes reviewed Mode of arrival: ambulatory Limitations: no limitations - History of Present Illness Initial Comments: This is a pleasant 37-year-old male who presents to the emergency department complaining of shortness of breath, this is worse with exertion as well as supine position. Patient states that this seemed to start over the past several days. Patient states he had diarrhea for about 2 weeks. He went to his regular physician was given medication. He states the diarrhea eventually stopped and then he became constipated. States she's had about 4 problems over the last week. Patient was initially taking Imodium, then he started taking some laxatives. Patient has had no fever. He has had some chest discomfort. But mostly shortness of breath with exertion. Patient saw his regular physician 2 days ago and had an outpatient x-ray ordered. No headache, no fever or chills, no changes in vision or hearing, no sore throat or difficulty with speech, no neck pain, , no abdominal pain, no nausea or vomiting, no changes in urination s, no numbness or tingling, no extremity pain, no skin rashes or lesions. Past medical, surgical, social, and family history reviewed. MD Complaint: shortness of breath, chest pain - Related Data Home Medications Medication Instructions Recorded Confirmed Pantoprazole Sodium [Protonix] 40 mg PO DAILY 01/14/17 09/09/19 ALPRAZolam [Xanax] 0.5 mg PO DAILY@1500 07/31/19 09/09/19 ARIPiprazole [Abilify] 7.5 mg PO DAILY 07/31/19 09/09/19 Citalopram Hydrobromide 40 mg PO DAILY 07/31/19 09/09/19 [Citalopram HBr] Insulin Glargine,Hum.rec.anlog 35 unit SQ HS 07/31/19 09/09/19 [Basaglar Kwikpen U-100] Metoprolol Tartrate [Lopressor] 25 mg PO DAILY 07/31/19 09/09/19 glipiZIDE [Glucotrol] 10 mg PO TID 07/31/19 09/09/19 metFORMIN HCL [Glucophage] 1,000 mg PO BID 07/31/19 09/09/19 ALPRAZolam [Xanax] 0.25 mg PO BID@0900,2100 09/09/19 09/09/19 Acetaminophen-Codeine 300-30mg 1 - 2 tab PO Q6H PRN 09/09/19 09/09/19 [Tylenol w/codeine #3] Penicillin V Potassium [Pen Vee K] 500 mg PO TID 09/09/19 09/09/19 Previous Rx's Medication Instructions Recorded lisinopriL [Zestril] 10 mg PO DAILY #30 tab 11/01/15 Acetaminophen [Tylenol Extra 500 mg PO Q6HR 7 Days #28 packet 04/24/21 Strength] Albuterol Inhaler [Ventolin Hfa 1 puff INHALATION RT-QID #8 gm 04/24/21 Inhaler] Allergies Allergy/AdvReac Type Severity Reaction Status Date / Time naproxen Allergy Rash/Hives Verified 04/15/22 20:14 Pfkhand-OHM-QfB Reductase Allergy "internal Verified 04/15/22 20:14 Inhibitor hives and [Xobvpoo-One-Wzp Reductase cramps" Inhibitor] simvastatin AdvReac Abdominal Verified 04/15/22 20:14 Pain Review of Systems ROS Statement: Those systems with pertinent positive or pertinent negative responses have been documented in the HPI. ROS Other: All systems not noted in ROS Statement are negative. Past Medical History Past Medical History: Diabetes Mellitus, GERD/Reflux, Hypertension, Sleep Apnea/CPAP/BIPAP Additional Past Medical History / Comment(s): migraines, hx palpiations, not using CPAP, gallstones, "pituitary brain tumor" History of Any Multi-Drug Resistant Organisms: None Reported Past Surgical History: Cholecystectomy Additional Past Surgical History / Comment(s): wisdom teeth Past Anesthesia/Blood Transfusion Reactions: Previous Problems w/ Anesthesia Additional Past Anesthesia/Blood Transfusion Reaction / Comment(s): has a hard time breathing when lying flat or on side Past Psychological History: Anxiety, Depression, Panic Disorder, Schizophrenia Smoking Status: Former smoker Past Alcohol Use History: None Reported Past Drug Use History: Marijuana - Past Family History Mother Family Medical History: No Reported History Additional Family Medical History / Comment(s): . General Exam - General Exam Comments Initial Comments: Vision in no significant distress. Does not appear to be ill or toxic. Noted to be hypertensive. Remainder of the vital signs are reviewed. Capillary refill less than 2 seconds. There is no mottling. Adequate skin turgor Limitations: no limitations General appearance: in distress (Minimal), obese Head exam: Present: atraumatic, normocephalic, normal inspection Eye exam: Present: normal appearance, PERRL, EOMI. Absent: scleral icterus, conjunctival injection, periorbital swelling ENT exam: Present: normal exam, normal oropharynx, mucous membranes dry, mucous membranes moist, TM's normal bilaterally, normal external ear exam, other (Partial cerumen obstruction bilaterally no evidence of infectious process) Neck exam: Present: normal inspection, full ROM. Absent: tenderness, meningismus, lymphadenopathy Respiratory exam: Present: normal lung sounds bilaterally. Absent: respiratory distress, wheezes, rales, rhonchi, stridor, chest wall tenderness, accessory muscle use Cardiovascular Exam: Present: regular rate, normal rhythm, normal heart sounds. Absent: systolic murmur, diastolic murmur, rubs, gallop, clicks GI/Abdominal exam: Present: soft, normal bowel sounds. Absent: distended, tenderness, guarding, rebound, rigid exam: Present: normal inspection Extremities exam: Present: normal inspection, full ROM, normal capillary refill. Absent: tenderness, pedal edema, joint swelling, calf tenderness Back exam: Present: normal inspection. Absent: paraspinal tenderness, vertebral tenderness Neurological exam: Present: alert, oriented X3, CN II-XII intact, normal gait. Absent: abnormal gait, motor sensory deficit Psychiatric exam: Present: normal affect, normal mood Skin exam: Present: warm, dry, intact, normal color. Absent: rash Course Vital Signs 04/15/22 04/15/22 04/15/22 20:12 22:14 23:00 Temperature 98.4 F Pulse Rate 94 77 77 Respiratory 18 16 16 Rate Blood Pressure 164/96 172/98 O2 Sat by Pulse 95 96 96 Oximetry - Reevaluation(s) Reevaluation #1: 04/16/22 00:37 Medical record is reviewed Symptoms are minimally improved here in the emergency department Patient is informed of results and questions answered Patient in no distress Medical Decision Making - Medical Decision Making Patient has nonspecific symptomology. Patient initially had diarrhea which has resolved. Patient now has symptoms consistent with possible viral syndrome. However the patient has shortness of breath with exertion, also with supine position. This does raise the suspicion of possible congestive heart failure. Also pericarditis would be in the differential. Viral disease such COVID-19 also possibility. Does not appear to be consistent with ischemic heart disease. Does not appear to be consistent with intra-abdominal pathology. Patient has no definitive reason for his clinical findings and diagnostic findings. Patient does have bilateral pleural effusions. Patient also has symptoms of dyspnea and orthopnea which after several days. Troponin was negative. BNP negative. I did advise admission to the patient. However the patient is refusing admission. Appointment with his primary care physician on Sunday at 9:30 AM. Patient is stating logistical reasons for not staying. Patient is alert and oriented 4, neurologically intact, lucid, able to make his own medical decisions. We did discuss risks versus benefits. Patient voiced understanding of the wrist. The case was discussed in detail with ED attending physician. Presentation, findings, treatment plan discussed in detail. Patient was told to return to the ER for any signs or symptoms worsen. Told to return immediately if any other problems arise. All questions answered. Treatment plan discussed. Patient in agreement Every effort has been made to ensure accuracy of this dictation. However, due to the limitations of electronic medical records and dictation devices, errors in charting still occur. Foundation Engineer Dr. Regan - Lab Data Result diagrams: 04/15/22 22:19 04/15/22 22:19 Lab Results 04/15/22 04/15/22 04/15/22 Range/Units 22:19 22:19 22:19 WBC 9.3 (3.8-10.6) k/uL RBC 4.65 (4.30-5.90) m/uL Hgb 13.3 (13.0-17.5) gm/dL Hct 41.0 (39.0-53.0) % MCV 88.1 (80.0-100.0) fL MCH 28.6 (25.0-35.0) pg MCHC 32.5 (31.0-37.0) g/dL RDW 14.2 (11.5-15.5) % Plt Count 301 (150-450) k/uL MPV 8.2 Neutrophils % 72 % Lymphocytes % 17 % Monocytes % 5 % Eosinophils % 3 % Basophils % 0 % Neutrophils # 6.7 (1.3-7.7) k/uL Lymphocytes # 1.6 (1.0-4.8) k/uL Monocytes # 0.5 (0-1.0) k/uL Eosinophils # 0.3 (0-0.7) k/uL Basophils # 0.0 (0-0.2) k/uL ESR 40 H (0-15) mm/hr PT 11.3 (9.0-12.0) sec INR 1.0 (<1.2) APTT 26.1 (22.0-30.0) sec Sodium 136 L (137-145) mmol/L Potassium 3.9 (3.5-5.1) mmol/L Chloride 105 (98-107) mmol/L Carbon Dioxide 30 (22-30) mmol/L Anion Gap 1 mmol/L BUN 14 (9-20) mg/dL Creatinine 1.01 (0.66-1.25) mg/dL Est GFR (CKD-EPI)AfAm >90 (>60 ml/min/1.73 sqM) Est GFR (CKD-EPI)NonAf >90 (>60 ml/min/1.73 sqM) Glucose 132 H (74-99) mg/dL Plasma Lactic Acid Harshal (0.7-2.0) mmol/L Calcium 8.3 L (8.4-10.2) mg/dL Magnesium 2.2 (1.6-2.3) mg/dL Total Bilirubin 0.6 (0.2-1.3) mg/dL AST 38 (17-59) U/L ALT 71 H (4-49) U/L Alkaline Phosphatase 73 (38-126) U/L Troponin I (0.000-0.034) ng/mL C-Reactive Protein 3.1 H (<1.0) mg/dL NT-Pro-B Natriuret Pep pg/mL Total Protein 6.6 (6.3-8.2) g/dL Albumin 3.7 (3.5-5.0) g/dL Coronavirus (PCR) (Not Detectd) Heterophile Antibody (Negative) Influenza Type A RNA (Not Detectd) Influenza Type B (PCR) (Not Detectd) 04/15/22 04/15/22 04/15/22 Range/Units 22:19 22:19 22:19 WBC (3.8-10.6) k/uL RBC (4.30-5.90) m/uL Hgb (13.0-17.5) gm/dL Hct (39.0-53.0) % MCV (80.0-100.0) fL MCH (25.0-35.0) pg MCHC (31.0-37.0) g/dL RDW (11.5-15.5) % Plt Count (150-450) k/uL MPV Neutrophils % % Lymphocytes % % Monocytes % % Eosinophils % % Basophils % % Neutrophils # (1.3-7.7) k/uL Lymphocytes # (1.0-4.8) k/uL Monocytes # (0-1.0) k/uL Eosinophils # (0-0.7) k/uL Basophils # (0-0.2) k/uL ESR (0-15) mm/hr PT (9.0-12.0) sec INR (<1.2) APTT (22.0-30.0) sec Sodium (137-145) mmol/L Potassium (3.5-5.1) mmol/L Chloride (98-107) mmol/L Carbon Dioxide (22-30) mmol/L Anion Gap mmol/L BUN (9-20) mg/dL Creatinine (0.66-1.25) mg/dL Est GFR (CKD-EPI)AfAm (>60 ml/min/1.73 sqM) Est GFR (CKD-EPI)NonAf (>60 ml/min/1.73 sqM) Glucose (74-99) mg/dL Plasma Lactic Acid Harshal 1.4 (0.7-2.0) mmol/L Calcium (8.4-10.2) mg/dL Magnesium (1.6-2.3) mg/dL Total Bilirubin (0.2-1.3) mg/dL AST (17-59) U/L ALT (4-49) U/L Alkaline Phosphatase (38-126) U/L Troponin I <0.012 (0.000-0.034) ng/mL C-Reactive Protein (<1.0) mg/dL NT-Pro-B Natriuret Pep 153 pg/mL Total Protein (6.3-8.2) g/dL Albumin (3.5-5.0) g/dL Coronavirus (PCR) (Not Detectd) Heterophile Antibody (Negative) Influenza Type A RNA (Not Detectd) Influenza Type B (PCR) (Not Detectd) 04/15/22 04/15/22 04/15/22 Range/Units 22:19 22:19 22:19 WBC (3.8-10.6) k/uL RBC (4.30-5.90) m/uL Hgb (13.0-17.5) gm/dL Hct (39.0-53.0) % MCV (80.0-100.0) fL MCH (25.0-35.0) pg MCHC (31.0-37.0) g/dL RDW (11.5-15.5) % Plt Count (150-450) k/uL MPV Neutrophils % % Lymphocytes % % Monocytes % % Eosinophils % % Basophils % % Neutrophils # (1.3-7.7) k/uL Lymphocytes # (1.0-4.8) k/uL Monocytes # (0-1.0) k/uL Eosinophils # (0-0.7) k/uL Basophils # (0-0.2) k/uL ESR (0-15) mm/hr PT (9.0-12.0) sec INR (<1.2) APTT (22.0-30.0) sec Sodium (137-145) mmol/L Potassium (3.5-5.1) mmol/L Chloride (98-107) mmol/L Carbon Dioxide (22-30) mmol/L Anion Gap mmol/L BUN (9-20) mg/dL Creatinine (0.66-1.25) mg/dL Est GFR (CKD-EPI)AfAm (>60 ml/min/1.73 sqM) Est GFR (CKD-EPI)NonAf (>60 ml/min/1.73 sqM) Glucose (74-99) mg/dL Plasma Lactic Acid Harshal (0.7-2.0) mmol/L Calcium (8.4-10.2) mg/dL Magnesium (1.6-2.3) mg/dL Total Bilirubin (0.2-1.3) mg/dL AST (17-59) U/L ALT (4-49) U/L Alkaline Phosphatase (38-126) U/L Troponin I (0.000-0.034) ng/mL C-Reactive Protein (<1.0) mg/dL NT-Pro-B Natriuret Pep pg/mL Total Protein (6.3-8.2) g/dL Albumin (3.5-5.0) g/dL Coronavirus (PCR) Not Detected (Not Detectd) Heterophile Antibody Negative (Negative) Influenza Type A RNA Not Detected (Not Detectd) Influenza Type B (PCR) Not Detected (Not Detectd) - EKG Data EKG Comments: EKG done at 2348 and review by the ED attending physician reveals sinus rhythm with sinus arrhythmia, right axis deviation, normal intervals, baseline artifact, some evidence of T-wave flattening, no definitive acute changes. Rate of 78 - Radiology Data Radiology results: report reviewed, image reviewed I did interpret the chest x-ray myself. Patient does have bilateral pleural effusions with some evidence of cephalization. No lobar infiltrate. No pneumothorax. No osseous lesion, no cardiomegaly. Agree with the radiology interpretation Disposition Clinical Impression: Atypical chest pain, Bilateral pleural effusion, Uncontrolled hypertension, Orthopnea, Exertional dyspnea Disposition: HOME SELF-CARE Condition: Fair Instructions (If sedation given, give patient instructions): Hypertension (ED), Pleural Effusion (DC), Dyspnea (ED) Additional Instructions: Make sure you keep her appointment with your primary care physician on Sunday morning. Follow-up with your regular physician as directed. Return to the ER immediately if any symptoms worsen, new symptoms arise, or any other problems develop. Is patient prescribed a controlled substance at d/c from ED?: No Referrals: Rashaad Chau MD [Primary Care Provider] - 04/17/22 9:30 am Time of Disposition: 00:38 Decision to Admit Reason: Admit from EC Decision Time: 00:38
--- NOTE | 2022-04-15 22:55 | XR ---
EXAMINATION TYPE: XR chest 2V DATE OF EXAM: 04/15/2022 COMPARISON: NONE HISTORY: Short of breath TECHNIQUE: 2 view FINDINGS: Heart and mediastinum are normal. Lungs are clear. There is slight blunting of the costophr enic angles. The bony thorax is intact IMPRESSION: Small bilateral pleural effusions. Normal heart. Pleural fluid appears new compared to ol d exam.
[2022-04-15 23:00] LABS: Basophils % (A) 0 %; Eosinophils # (A) 0.3 k/uL (0-0.7); Eosinophils % (A) 3 %; HGB 13.3 gm/dL (13.0-17.5); Lymphocytes # (A) 1.6 k/uL (1.0-4.8); Lymphocytes % (A) 17 %; MCH 28.6 pg (25.0-35.0); MCHC 32.5 g/dL (31.0-37.0); MCV 88.1 fL (80.0-100.0); Mean Platelet Volume 8.2; Monocytes # (A) 0.5 k/uL (0-1.0); Monocytes % (A) 5 %; Neutrophils # (A) 6.7 k/uL (1.3-7.7); Neutrophils % (A) 72 %; Platelet Count 301 k/uL (150-450); RBC 4.65 m/uL (4.30-5.90); RDW 14.2 % (11.5-15.5); WBC 9.3 k/uL (3.8-10.6)
[2022-04-15 23:13] VITALS: RESP 16
[2022-04-15 23:19] LABS: ALT 71 U/L (4-49); AST 38 U/L (17-59); African American GFR (CKD) >90 (>60 ml/min/1.73 sqM); Albumin 3.7 g/dL (3.5-5.0); Alkaline Phosphatase 73 U/L (38-126); Anion Gap 1 mmol/L; Blood Urea Nitrogen 14 mg/dL (9-20); C Reactive Protein 3.1 mg/dL (<1.0); Calcium 8.3 mg/dL (8.4-10.2); Carbon Dioxide 30 mmol/L (22-30); Chloride 105 mmol/L (98-107); Glucose 132 mg/dL (74-99); Magnesium 2.2 mg/dL (1.6-2.3); Non-African American GFR(CKD) >90 (>60 ml/min/1.73 sqM); Potassium 3.9 mmol/L (3.5-5.1); Sodium 136 mmol/L (137-145); Total Bilirubin 0.6 mg/dL (0.2-1.3); Total Protein 6.6 g/dL (6.3-8.2)
[2022-04-15 23:36] LABS: Partial Thromboplastin Time 26.1 sec (22.0-30.0); Prothrombin Time 11.3 sec (9.0-12.0)
[2022-04-16 00:12] LABS: Erythrocyte Sedimentation Rate 40 mm/hr (0-15)
[2022-04-16] MEDS ORDERED: FUROSEMIDE 10 MG/ML 2 ML VIAL IV ONE (00:37)
[2022-04-16 01:46] VITALS: BP 182/100; PULSE 74
== END 2022-04-16 01:46 | disposition home or self-care (01) ==
LOC: EC 20:06
DX: J90 Pleural effusion, not elsewhere classified (principal); R06.01 Orthopnea; I10 Essential (primary) hypertension; E11.9 Type 2 diabetes mellitus without complications; K21.9 Gastro-esophageal reflux disease without esophagitis; G47.30 Sleep apnea, unspecified; F41.9 Anxiety disorder, unspecified; F32.A Depression, unspecified; Z87.891 Personal history of nicotine dependence; Z20.822 Contact with and (suspected) exposure to COVID-19; Z79.83 Long term (current) use of bisphosphonates; Z79.899 Other long term (current) drug therapy; Z79.891 Long term (current) use of opiate analgesic; Z79.84 Long term (current) use of oral hypoglycemic drugs; Z88.6 Allergy status to analgesic agent; Z88.8 Allergy status to other drugs, medicaments and biological substances
CPT/HCPCS: 36415; 93005; 83880; 80053; 85652; 83605; 83735; 84484; 85025; 85610; 85730; 86140; 86308; 87502; 87635; 71046; 99285; 96374; 96361 ×2; J1940

== ENCOUNTER → 2022-12-12 | Outpatient (CLI) | payer MEDICARE, OTHER ==
--- NOTE | 2022-12-12 11:34 | XR ---
EXAM TYPE: LUMBAR SPINE X RAY SERIES COMPARISON: NONE HISTORY: Pain TECHNIQUE: 4 views are submitted. FINDINGS: Alignment is anatomic. The pedicles are intact. The transverse processes are intact. There is no spondylolisthesis. Hypertrophic and degenerative changes of the spine. Facet arthropathy L5-S1. Surg ical clips in the upper abdomen. IMPRESSION: 1. Multilevel hypertrophic spurring with facet arthropathy L5-S1. Cannot exclude a unilateral spondyl olysis. Recommend follow-up MRI.
== END | disposition home or self-care (01) ==
LOC: RADXRMAIN 10:45
PROVIDERS: ATTEND Internal Medicine
DX: M47.817 Spondylosis without myelopathy or radiculopathy, lumbosacral region (principal)
CPT/HCPCS: 72110

== ENCOUNTER 2023-11-09 09:30 | Emergency (ER) | payer MEDICARE, OTHER ==
[2023-11-09 10:01] VITALS: RESP 18
--- NOTE | 2023-11-09 10:44 | ED ---
Male Urogenital HPI - General Source: patient, RN notes reviewed Mode of arrival: ambulatory Limitations: no limitations <Norma Jerez - Last Filed: 11/09/23 10:42> - General Source: patient, RN notes reviewed, old records reviewed <Robles Regan - Last Filed: 11/09/23 14:43> - General Chief complaint: Urogenital Stated complaint: Severe groin pain Time Seen by Provider: 11/09/23 10:42 - History of Present Illness Initial comments: Quick [id number] male presenting with penile pain x 5 days. States he has swelling around his foreskin and has been having increasing irritation when he urinates. He was given a cream from his PCP 3 days ago however feels as though it is getting worse. (Norma Jerez) Patient is a 38-year-old male who presents emergency department complaining of foreskin pain and edema for the last 5 days. Was diagnosed with balanitis and placed on nystatin as well as instructed by PCP to keep the area clean with water. Has been trying other medications such as superficial lidocaine paste w ith Neosporin with minimal improvement that makes it worse. Presents for further evaluation at this time. The sores which are located on both the foreskin as well as the tip of the penis worsen when urine touches them. They are open. Denies any purulent discharge from the penis itself. No history of STDs or UTIs. Presents for further evaluation at this time. Is a diabetic. Denies any systemic signs of infection at this time. Originally seen as a quick note. I evaluated the patient when he was placed in a room. (Robles Regan) - Related Data Home Medications Medication Instructions Recorded Confirmed Pantoprazole Sodium [Protonix] 40 mg PO DAILY 01/14/17 09/09/19 ALPRAZolam [Xanax] 0.5 mg PO DAILY@1500 07/31/19 09/09/19 ARIPiprazole [Abilify] 7.5 mg PO DAILY 07/31/19 09/09/19 Citalopram Hydrobromide 40 mg PO DAILY 07/31/19 09/09/19 [Citalopram HBr] Insulin Glargine,Hum.rec.anlog 35 unit SQ HS 07/31/19 09/09/19 [Basaglar Kwikpen U-100] Metoprolol Tartrate [Lopressor] 25 mg PO DAILY 07/31/19 09/09/19 glipiZIDE [Glucotrol] 10 mg PO TID 07/31/19 09/09/19 metFORMIN HCL [Glucophage] 1,000 mg PO BID 07/31/19 09/09/19 ALPRAZolam [Xanax] 0.25 mg PO BID@0900,2100 09/09/19 09/09/19 Acetaminophen-Codeine 300-30mg 1 - 2 tab PO Q6H PRN 09/09/19 09/09/19 [Tylenol w/codeine #3] Penicillin V Potassium [Pen Vee K] 500 mg PO TID 09/09/19 09/09/19 Previous Rx's Medication Instructions Recorded lisinopriL [Zestril] 10 mg PO DAILY #30 tab 11/01/15 Acetaminophen [Tylenol Extra 500 mg PO Q6HR 7 Days #28 packet 04/24/21 Strength] Albuterol Inhaler [Ventolin Hfa 1 puff INHALATION RT-QID #8 gm 04/24/21 Inhaler] Mupirocin 2% Oint [Bactroban 2% 1 applic TOPICAL TID #22 gm 11/09/23 Oint] Sulfamethox-Tmp 800-160Mg [Bactrim 1 tab PO Q12HR 5 Days #10 tab 11/09/23 DS 800-160 mg] Allergies Allergy/AdvReac Type Severity Reaction Status Date / Time naproxen Allergy Rash/Hives Verified 11/09/23 10:01 Olhxicv-ETI-JmW Reductase Allergy "internal Verified 11/09/23 10:01 Inhibitor hives and [Umidqoy-Tbv-Ucd Reductase cramps" Inhibitor] simvastatin AdvReac Abdominal Verified 11/09/23 10:01 Pain Review of Systems ROS Other: All systems not noted in ROS Statement are negative. <Norma Jerez - Last Filed: 11/09/23 10:42> ROS Other: All systems not noted in ROS Statement are negative. <Robles Regan - Last Filed: 11/09/23 14:43> ROS Statement: Those systems with pertinent positive or pertinent negative responses have been documented in the HPI. Review of Systems: CONST: Denies fever EYES: Denies blurry vision ENT: Denies nasal congestion C/V: Denies Chest pain RESP: Denies shortness of breath GI: Denies abdominal pain : Endorses open wounds on the tip of the penis as well as the foreskin. SKIN: Denies rash. MSK: Denies joint pain. NEURO: Denies headache (Robles Regan) Past Medical History Past Medical History: Diabetes Mellitus, GERD/Reflux, Hypertension, Sleep Apnea/CPAP/BIPAP Additional Past Medical History / Comment(s): migraines, hx palpiations, not using CPAP, gallstones, "pituitary brain tumor" History of Any Multi-Drug Resistant Organisms: None Reported Past Surgical History: Cholecystectomy, Heart Catheterization, Heart Catheterization With Stent Additional Past Surgical History / Comment(s): wisdom teeth Past Anesthesia/Blood Transfusion Reactions: Previous Problems w/ Anesthesia Additional Past Anesthesia/Blood Transfusion Reaction / Comment(s): has a hard time breathing when lying flat or on side Past Psychological History: Anxiety, Depression, Panic Disorder, Schizophrenia Smoking Status: Former smoker Past Alcohol Use History: None Reported Past Drug Use History: Marijuana - Past Family History Mother Family Medical History: No Reported History Additional Family Medical History / Comment(s): . <Norma Jerez - Last Filed: 11/09/23 10:42> General Exam Limitations: no limitations <Norma Jerez - Last Filed: 11/09/23 10:42> <Robles Regan - Last Filed: 11/09/23 14:43> - General Exam Comments Initial Comments: Visual Physical Exam Vital signs reviewed General: Well-appearing, nontoxic, no acute distress. Head: Normocephalic, atraumatic Eyes: PERRLA, EOMI ENT: Airway patent Chest: Nonlabored breathing Skin: No visual rash, normal skin tone Neuro: Alert and oriented 3 Musculoskeletal: No gross abnormalities (Norma Jerez) General: Appears in no acute distress. HEAD: Normal with no signs of head trauma. EYES: EOMI. ENT: Hearing grossly intact. RESPIRATORY: No respiratory distress. C/V: Regular rate and rhythm. ABD: Abdomen is nondistended. : Open sores on the tip of the penis as well as over the foreskin. Easily reducible foreskin. Patient appears to have balanitis as well as posthitis. No evidence for phimosis or paraphimosis at this time. Patient is circumcised. EXT: No obvious deformity. SKIN: No rashes or lesions observed on exposed skin. NEURO: Alert and oriented. (Robles Regan) Course Vital Signs 11/09/23 11/09/23 09:58 11:33 Temperature 98.2 F 98.1 F Pulse Rate 84 70 Respiratory 18 18 Rate Blood Pressure 133/75 110/68 O2 Sat by Pulse 96 98 Oximetry Medical Decision Making <Norma Jerez - Last Filed: 11/09/23 10:42> <Robles Regan - Last Filed: 11/09/23 14:43> - Medical Decision Making I completed the quick note portion of this chart signed Norma Jerez PA-C (Norma Jerez) Was pt. sent in by a medical professional or institution (, PA, VEST PRESSER, urgent care, hospital, or correction...) When possible be specific @ -No Did you speak to anyone other than the patient for history (EMS, parent, family, police, friend...)? What history was obtained from this source @ -No Did you review nursing and triage notes (agree or disagree)? Why? @ -I reviewed and agree with nursing and triage notes Were old charts reviewed (outside hosp., previous admission, EMS record, old EKG, old radiological studies, urgent care reports/EKG's, correction records)? Report findings @ -No old charts were reviewed Differential Diagnosis (chest pain, altered mental status, abdominal pain women, abdominal pain men, vaginal bleeding, weakness, fever, dyspnea, syncope, headache, dizziness, GI bleed, back pain, seizure, CVA, palpatations, mental health, musculoskeletal)? @ -Balanitis, paraphimosis, phimosis, STD, UTI. This list is not all inclusive. EKG interpreted by me (3pts min.). @ -None done X-rays interpreted by me (1pt min.). @ -None done CT interpreted by me (1pt min.). @ -None done U/S interpreted by me (1pt. min.). @ -None done What testing was considered but not performed or refused? (CT, X-rays, U/S, labs)? Why? @ -None What meds were considered but not given or refused? Why? @ -None Did you discuss the management of the patient with other professionals (professionals i.e. , PA, VEST PRESSER, lab, RT, psych nurse, social science instructor, director of product design, teacher, chief nursing officer, business case analyst)? Give summary @ -No Was smoking cessation discussed for >3mins.? @ -No Was critical care preformed (if so, how long)? @ -No Were there social determinants of health that impacted care today? How? (Homelessness, low income, unemployed, alcoholism, drug addiction, transportation, low edu. Level, literacy, decrease access to med. care, senior care, rehab)? @ -No Was there de-escalation of care discussed even if they declined (Discuss DNR or withdrawal of care, Hospice)? DNR status @ -No What co-morbidities impacted this encounter? (DM, HTN, Smoking, COPD, CAD, Cancer, CVA, ARF, Chemo, Hep., AIDS, mental health diagnosis, sleep apnea, morbid obesity)? @ -None Was patient admitted / discharged? Hospital course, mention meds given and route, prescriptions, significant lab abnormalities, going to OR and other pertinent info. @ -Based on the patient's presentation and physical exam, appears he has balanitis as well as posthitis. Vitals are within acceptable limits. Afebrile. No systemic signs of infection. He is already on antifungal treatment but I will broaden the spectrum with mupirocin ointment as well as placing the patient empirically on a systemic antibiotic. He was in agreement this plan. We discussed good hygiene as well as cleaning with only water at this time as well as using sitz bath's. He expressed understanding. I believe it is safer to be discharged home at this time. He will follow-up with his PCP in the next few days. Patient was in agreement this plan. I will provide the patient with a prescription for Bactrim, mupirocin. I instructed the patient to follow up with their PCP in the next 1-3 days.. I explained that the patient should return to the emergency department if they experience any worsening symptoms. Strict return precautions were discussed with the patient. The patient expressed understanding of these instructions. I answered all questions that the patient had. The patient was discharged home in good condition with their prescriptions and follow up information. Undiagnosed new problem with uncertain prognosis? @ -No Drug Therapy requiring intensive monitoring for toxicity (Heparin, Nitro, Insulin, Cardizem)? @ -No Were any procedures done? @ -No Diagnosis/symptom? @ -Balanitis, posthitis Acute, or Chronic, or Acute on Chronic? @ -Acute Uncomplicated (without systemic symptoms) or Complicated (systemic symptoms)? @ -Uncomplicated Side effects of treatment? @ -No Exacerbation, Progression, or Severe Exacerbation? @ -No Poses a threat to life or bodily function? How? (Chest pain, [place], [place], pneumonia, PE, COPD, DKA, ARF, appy, cholecystitis, CVA, Diverticulitis, Homicidal, Suicidal, threat to staff... and all critical care pts) @ -No (Robles Regan) Disposition <Norma Jerez - Last Filed: 11/09/23 10:42> Is patient prescribed a controlled substance at d/c from ED?: No Time of Disposition: 11:23 <Robles Regan - Last Filed: 11/09/23 14:43> Clinical Impression: Balanitis, Posthitis Disposition: HOME SELF-CARE Condition: Good Instructions (If sedation given, give patient instructions): Balanitis (ED) Additional Instructions: Clean with water only and q tip. continue using nystatin ointment at home. use mupirocin oinment as well. keep with good hygiene and follow up with your PCP in the next 3 days for re-evaluation. Sitz baths for cleaning. Prescriptions: Sulfamethox-Tmp 800-160Mg [Bactrim DS 800-160 mg] 1 tab PO Q12HR 5 Days #10 tab Mupirocin 2% Oint [Bactroban 2% Oint] 1 applic TOPICAL TID #22 gm Referrals: Rashaad Chau MD [Primary Care Provider] - 1-2 days
[2023-11-09 11:34] VITALS: BP 110/68; PULSE 70; TEMP 98.1
== END 2023-11-09 11:33 | disposition home or self-care (01) ==
LOC: EC 09:30
DX: N48.1 Balanitis (principal); N47.7 Other inflammatory diseases of prepuce; Z87.891 Personal history of nicotine dependence; F12.90 Cannabis use, unspecified, uncomplicated
CPT/HCPCS: 99283

== ENCOUNTER 2023-11-10 09:36 | Emergency (ER) | payer MEDICARE, OTHER ==
--- NOTE | 2023-11-10 10:39 | ED ---
Male Urogenital HPI - General Chief complaint: Abdominal Pain Stated complaint: Groin Swelling Time Seen by Provider: 11/10/23 09:46 Source: patient, RN notes reviewed Mode of arrival: ambulatory Limitations: no limitations - History of Present Illness Initial comments: This is a 38-year-old male who presents to the emergency department for penile pain. Patient was evaluated here yesterday for the symptoms. Pain had been occurring for 5 days prior and his PCP started him on nystatin cream 3 days prior as well as oral diflucan. He was not having any relief, prompting him to come to the emergency department yesterday. He was started on mupirocin ointment and Bactrim to take in conjunction with the nystatin cream and diflucan. States that yesterday he continued to have increasing swelling and then started to notice pus when he would retract the foreskin. Denies any fevers or chills, nausea or vomiting. - Related Data Home Medications Medication Instructions Recorded Confirmed Pantoprazole Sodium [Protonix] 40 mg PO DAILY 01/14/17 09/09/19 ALPRAZolam [Xanax] 0.5 mg PO DAILY@1500 07/31/19 09/09/19 ARIPiprazole [Abilify] 7.5 mg PO DAILY 07/31/19 09/09/19 Citalopram Hydrobromide 40 mg PO DAILY 07/31/19 09/09/19 [Citalopram HBr] Insulin Glargine,Hum.rec.anlog 35 unit SQ HS 07/31/19 09/09/19 [Basaglar Kwikpen U-100] Metoprolol Tartrate [Lopressor] 25 mg PO DAILY 07/31/19 09/09/19 glipiZIDE [Glucotrol] 10 mg PO TID 07/31/19 09/09/19 metFORMIN HCL [Glucophage] 1,000 mg PO BID 07/31/19 09/09/19 ALPRAZolam [Xanax] 0.25 mg PO BID@0900,2100 09/09/19 09/09/19 Acetaminophen-Codeine 300-30mg 1 - 2 tab PO Q6H PRN 09/09/19 09/09/19 [Tylenol w/codeine #3] Penicillin V Potassium [Pen Vee K] 500 mg PO TID 09/09/19 09/09/19 Previous Rx's Medication Instructions Recorded lisinopriL [Zestril] 10 mg PO DAILY #30 tab 11/01/15 Acetaminophen [Tylenol Extra 500 mg PO Q6HR 7 Days #28 packet 04/24/21 Strength] Albuterol Inhaler [Ventolin Hfa 1 puff INHALATION RT-QID #8 gm 04/24/21 Inhaler] Mupirocin 2% Oint [Bactroban 2% 1 applic TOPICAL TID #22 gm 11/09/23 Oint] Sulfamethox-Tmp 800-160Mg [Bactrim 1 tab PO Q12HR 5 Days #10 tab 11/09/23 DS 800-160 mg] HYDROcodone/APAP 5-325MG [[place] 1 tab PO Q6HR PRN 3 Days #12 tab 11/10/23 5-325] Ketorolac [Toradol] 10 mg PO Q6HR PRN #15 tab 11/10/23 Allergies Allergy/AdvReac Type Severity Reaction Status Date / Time naproxen Allergy Rash/Hives Verified 11/10/23 09:40 Llvczmz-ROY-AkS Reductase Allergy "internal Verified 11/10/23 09:40 Inhibitor hives and [Rishygb-Ixu-Rum Reductase cramps" Inhibitor] simvastatin AdvReac Abdominal Verified 11/10/23 09:40 Pain Review of Systems ROS Statement: Those systems with pertinent positive or pertinent negative responses have been documented in the HPI. ROS Other: All systems not noted in ROS Statement are negative. Past Medical History Past Medical History: Diabetes Mellitus, GERD/Reflux, Hypertension, Sleep Apnea/CPAP/BIPAP Additional Past Medical History / Comment(s): migraines, hx palpiations, not using CPAP, gallstones, "pituitary brain tumor" History of Any Multi-Drug Resistant Organisms: None Reported Past Surgical History: Cholecystectomy, Heart Catheterization, Heart Catheterization With Stent Additional Past Surgical History / Comment(s): wisdom teeth Past Anesthesia/Blood Transfusion Reactions: Previous Problems w/ Anesthesia Additional Past Anesthesia/Blood Transfusion Reaction / Comment(s): has a hard time breathing when lying flat or on side Past Psychological History: Anxiety, Depression, Panic Disorder, Schizophrenia Smoking Status: Former smoker Past Alcohol Use History: None Reported Past Drug Use History: Marijuana - Past Family History Mother Family Medical History: No Reported History Additional Family Medical History / Comment(s): . General Exam Limitations: no limitations General appearance: alert, in no apparent distress Head exam: Present: atraumatic, normocephalic, normal inspection Respiratory exam: Present: normal lung sounds bilaterally. Absent: respiratory distress, wheezes, rales, rhonchi, stridor Cardiovascular Exam: Present: regular rate, normal rhythm, normal heart sounds. Absent: systolic murmur, diastolic murmur, rubs, gallop, clicks exam: Present: other (Sores on the penis and foreskin. The foreskin appears to be swollen but is easily retractable. Upon retraction there appears to be purulent drainage.) Neurological exam: Present: alert, oriented X3, CN II-XII intact Psychiatric exam: Present: normal affect, normal mood Course Vital Signs 11/10/23 11/10/23 09:37 14:17 Temperature 98.2 F 97.9 F Pulse Rate 103 H 77 Respiratory 20 18 Rate Blood Pressure 145/84 112/60 O2 Sat by Pulse 99 95 Oximetry Medical Decision Making - Medical Decision Making This is a 38 year old male who presents to the emergency department for penile pain. Was pt. sent in by a medical professional or institution? @ -No Did you speak to anyone other than the patient for history? @ -No Did you review nursing and triage notes? @ -Yes, and I agree, it is accurate with regards to the patient's symptoms. Were old charts reviewed? @ -No Differential Diagnosis? @ -Differential Penile Pain: Balanitis, paraphimosis, phimosis, STD, UTI, this is not meant to be an all- inclusive list. EKG interpreted by me (3pts min.)? @ -Not obtained X-rays interpreted by me (1pt min.)? @ -Not obtained CT interpreted by me (1pt min.)? @ -Not obtained U/S interpreted by me (1pt. min.)? @ -Not obtained What testing was considered but not performed? (CT, X-rays, U/S, labs)? Why? @ -None What meds were considered but not given? Why? @ -None Did you discuss the management of the patient with other professionals? @ -No Did you reconcile home meds? @ -No Was smoking cessation discussed for >3mins.? @ -I discussed smoking cessation for greater than 3 minutes. The risk of smoking were discussed with the patient including but not limited to risks of cancer, stroke, coronary artery disease and COPD. Also discussed with patient were multiple methods of quitting smoking. Lastly we discussed the financial cost of smoking. Was critical care preformed (if so, how long)? @ -No Were there social determinants of health that impacted care today? How? (Homelessness, low income, unemployed, alcoholism, drug addiction, transportation, low edu. Level, literacy, decrease access to med. care, snf, rehab)? @ -No Was there de-escalation of care discussed even if they declined? (Discuss DNR or withdrawal of care, Hospice)? @ -No What co-morbidities impacted this encounter? (DM, HTN, Smoking, COPD, CAD, Cancer, CVA, Hep., AIDS, mental health diagnosis, sleep apnea, morbid obesity)? @ -Smoking, DM, HTN Was patient admitted / discharged? @ -Discharged. Lab work fairly unremarkable. Urinalysis negative for signs of infection. Patient has significantly swollen foreskin on exam essentially causing a phimosis. There is also a large amount of purulence as well as open sores. Patient is already on maximum medication therapy with nystatin cream, mupirocin ointment, oral Diflucan, and Bactrim. Discussed with the patient that he needs to work on cleaning out this whole area. The largest issue for him is pain control. The pain is making it so he is refusing to urinate. Bladder scan demonstrates 555 mL of urine. Discussed with the patient that a Lewis catheter would be indicated at this point. He requested to try urinating on his own again first and was successful. He was able to urinate, but was avoiding it due to the pain. Prescription for Toradol and [place] provided with dosing instructions reviewed for pain management. Advised close follow-up with his primary care provider and urology. Patient discharged home in stable condition. Undiagnosed new problem with uncertain prognosis? @ -None Drug Therapy requiring intensive monitoring for toxicity (Heparin, Nitro, Insulin, Cardizem)? @ -None Were any procedures done? @ -None Diagnosis/symptom? @ -Balanoposthitis Acute, or Chronic, or Acute on Chronic? @ -Acute Uncomplicated (without systemic symptoms) or Complicated (systemic symptoms)? @ -Uncomplicated Side effects of treatment? @ -None Exacerbation, Progression, or Severe Exacerbation] @ -Not applicable Poses a threat to life or bodily function? @ -No Return precautions reviewed in depth, the patient is instructed to return to the emergency department with any new, worsening, or concerning symptoms. Patient verbalized understanding. This case was discussed in detail with the attending ED physician, Dr. Roman. Presentation, findings, and treatment plan discussed in detail as well. - Lab Data Result diagrams: 11/10/23 10:40 11/10/23 10:40 Lab Results 11/10/23 11/10/23 11/10/23 Range/Units 10:40 10:40 10:40 WBC 8.3 (3.8-10.6) k/uL RBC 5.37 (4.30-5.90) m/uL Hgb 14.5 (13.0-17.5) gm/dL Hct 46.2 (39.0-53.0) % MCV 86.0 (80.0-100.0) fL MCH 27.1 (25.0-35.0) pg MCHC 31.4 (31.0-37.0) g/dL RDW 14.6 (11.5-15.5) % Plt Count 323 (150-450) k/uL MPV 7.3 Neutrophils % 70 % Lymphocytes % 18 % Monocytes % 6 % Eosinophils % 1 % Basophils % 1 % Neutrophils # 5.8 (1.3-7.7) k/uL Lymphocytes # 1.5 (1.0-4.8) k/uL Monocytes # 0.5 (0-1.0) k/uL Eosinophils # 0.1 (0-0.7) k/uL Basophils # 0.1 (0-0.2) k/uL Sodium 141 (137-145) mmol/L Potassium 4.5 (3.5-5.1) mmol/L Chloride 107 (98-107) mmol/L Carbon Dioxide 28 (22-30) mmol/L Anion Gap 6 mmol/L BUN 19 (9-20) mg/dL Creatinine 0.95 (0.66-1.25) mg/dL Est GFR (CKD-EPI)AfAm >90 (>60 ml/min/1.73 sqM) Est GFR (CKD-EPI)NonAf >90 (>60 ml/min/1.73 sqM) Glucose 126 H (74-99) mg/dL Plasma Lactic Acid Harshal 1.0 (0.7-2.0) mmol/L Calcium 8.9 (8.4-10.2) mg/dL Total Bilirubin 0.6 (0.2-1.3) mg/dL AST 29 (17-59) U/L ALT 43 (4-49) U/L Alkaline Phosphatase 57 (38-126) U/L C-Reactive Protein 2.7 H (<1.0) mg/dL Total Protein 6.7 (6.3-8.2) g/dL Albumin 3.8 (3.5-5.0) g/dL Urine Color Urine Appearance (Clear) Urine pH (5.0-8.0) Ur Specific [place] (1.001-1.035) Urine Protein (Negative) Urine Glucose (UA) (Negative) Urine Ketones (Negative) Urine Blood (Negative) Urine Nitrite (Negative) Urine Bilirubin (Negative) Urine Urobilinogen (<2.0) mg/dL Ur Leukocyte Esterase (Negative) 11/10/23 Range/Units 11:45 WBC (3.8-10.6) k/uL RBC (4.30-5.90) m/uL Hgb (13.0-17.5) gm/dL Hct (39.0-53.0) % MCV (80.0-100.0) fL MCH (25.0-35.0) pg MCHC (31.0-37.0) g/dL RDW (11.5-15.5) % Plt Count (150-450) k/uL MPV Neutrophils % % Lymphocytes % % Monocytes % % Eosinophils % % Basophils % % Neutrophils # (1.3-7.7) k/uL Lymphocytes # (1.0-4.8) k/uL Monocytes # (0-1.0) k/uL Eosinophils # (0-0.7) k/uL Basophils # (0-0.2) k/uL Sodium (137-145) mmol/L Potassium (3.5-5.1) mmol/L Chloride (98-107) mmol/L Carbon Dioxide (22-30) mmol/L Anion Gap mmol/L BUN (9-20) mg/dL Creatinine (0.66-1.25) mg/dL Est GFR (CKD-EPI)AfAm (>60 ml/min/1.73 sqM) Est GFR (CKD-EPI)NonAf (>60 ml/min/1.73 sqM) Glucose (74-99) mg/dL Plasma Lactic Acid Harshal (0.7-2.0) mmol/L Calcium (8.4-10.2) mg/dL Total Bilirubin (0.2-1.3) mg/dL AST (17-59) U/L ALT (4-49) U/L Alkaline Phosphatase (38-126) U/L C-Reactive Protein (<1.0) mg/dL Total Protein (6.3-8.2) g/dL Albumin (3.5-5.0) g/dL Urine Color Light Yellow Urine Appearance Clear (Clear) Urine pH 6.0 (5.0-8.0) Ur Specific [place] 1.047 H (1.001-1.035) Urine Protein Negative (Negative) Urine Glucose (UA) 4+ H (Negative) Urine Ketones 1+ H (Negative) Urine Blood Negative (Negative) Urine Nitrite Negative (Negative) Urine Bilirubin Negative (Negative) Urine Urobilinogen <2.0 (<2.0) mg/dL Ur Leukocyte Esterase Negative (Negative) Disposition Clinical Impression: Balanoposthitis Disposition: HOME SELF-CARE Instructions (If sedation given, give patient instructions): Balanoposthitis (ED) Additional Instructions: Return to the emergency department with any new, worsening, or concerning symptoms. Take the Toradol with Tylenol as needed for pain relief. If you choose to take the Toradol, do not take any other anti-inflammatories such as ibuprofen, take one or the other. Take the [place] sparingly and your pain is the most severe. Do your best to clean out the genitalia. Continue to apply the creams and take the oral medications as prescribed. Follow-up with urology as listed below. Follow up with your primary care provider in 1-2 days. Prescriptions: HYDROcodone/APAP 5-325MG [[place] 5-325] 1 tab PO Q6HR PRN 3 Days #12 tab PRN Reason: Pain Ketorolac [Toradol] 10 mg PO Q6HR PRN #15 tab PRN Reason: Pain Is patient prescribed a controlled substance at d/c from ED?: Yes When asked, does pt state using other controlled substances?: Yes If prescribed controlled substance>3 days was MAPS reviewed?: Prescribed <3 Days Referrals: Rashaad Chau MD [Primary Care Provider] - 1-2 days Yoandy Chavez MD [STAFF PHYSICIAN] - 1-2 days Time of Disposition: 14:00
[2023-11-10] MEDS: HYDROmorphone 1 MG/ML 1 ML SYRINGE IVP STA ×2 (10:51→11:59)
[2023-11-10] MEDS: KETOROLAC 15 MG/ML 1 ML VIAL IVP STA ×2 (10:51→11:59)
[2023-11-10 11:01] LABS: Basophils # (A) 0.1 k/uL (0-0.2); Basophils % (A) 1 %; Eosinophils # (A) 0.1 k/uL (0-0.7); Eosinophils % (A) 1 %; HCT 46.2 % (39.0-53.0); HGB 14.5 gm/dL (13.0-17.5); Lymphocytes # (A) 1.5 k/uL (1.0-4.8); Lymphocytes % (A) 18 %; MCH 27.1 pg (25.0-35.0); MCHC 31.4 g/dL (31.0-37.0); Mean Platelet Volume 7.3; Monocytes # (A) 0.5 k/uL (0-1.0); Monocytes % (A) 6 %; Neutrophils # (A) 5.8 k/uL (1.3-7.7); Neutrophils % (A) 70 %; Platelet Count 323 k/uL (150-450); RBC 5.37 m/uL (4.30-5.90); RDW 14.6 % (11.5-15.5); WBC 8.3 k/uL (3.8-10.6)
[2023-11-10 11:22] LABS: ALT 43 U/L (4-49); AST 29 U/L (17-59); African American GFR (CKD) >90 (>60 ml/min/1.73 sqM); Albumin 3.8 g/dL (3.5-5.0); Alkaline Phosphatase 57 U/L (38-126); Anion Gap 6 mmol/L; Blood Urea Nitrogen 19 mg/dL (9-20); C Reactive Protein 2.7 mg/dL (<1.0); Calcium 8.9 mg/dL (8.4-10.2); Carbon Dioxide 28 mmol/L (22-30); Chloride 107 mmol/L (98-107); Glucose 126 mg/dL (74-99); Non-African American GFR(CKD) >90 (>60 ml/min/1.73 sqM); Potassium 4.5 mmol/L (3.5-5.1); Sodium 141 mmol/L (137-145); Total Bilirubin 0.6 mg/dL (0.2-1.3); Total Protein 6.7 g/dL (6.3-8.2)
[2023-11-10 12:07] LABS: Appearance,Urine Clear (Clear); Bilirubin,Urine Negative (Negative); Blood,Urine Negative (Negative); Color,Urine Light Yellow; Glucose,Urine (UA) 4+ (Negative); Ketones,Urine 1+ (Negative); Leukocyte Esterase,Urine Negative (Negative); Nitrite,Urine Negative (Negative); Protein,Urine Negative (Negative); Urobilinogen,Urine <2.0 mg/dL (<2.0)
[2023-11-10 12:09] LABS: Specific Gravity,Urine 1.047 (1.001-1.035)
[2023-11-10] MEDS: FLUCONAZOLE 150 MG TAB PO STA (12:45)
[2023-11-10] MEDS: LIDOCAINE 2% URO-JET JELLY 5 ML KIT URETHRAL ONE (14:16)
[2023-11-10] MEDS: LORazepam 2 MG/ML INJ IV STA (14:17)
[2023-11-10 14:24] VITALS: BP 112/60; PULSE 77; RESP 18; TEMP 97.9
== END 2023-11-10 14:25 | disposition home or self-care (01) ==
LOC: EC 09:36
DX: N47.6 Balanoposthitis (principal); Z87.891 Personal history of nicotine dependence; Z88.8 Allergy status to other drugs, medicaments and biological substances; Z90.49 Acquired absence of other specified parts of digestive tract
CPT/HCPCS: 51798; 36415; 80053; 83605; 85025; 86140; 81003; 87070; 87205; 87075; 99284; 96374; 96375; 96376 ×2; 99406; J1170; J1885

== ENCOUNTER 2024-09-21 15:59 | Emergency (ER) | payer MEDICARE, OTHER ==
--- NOTE | 2024-09-21 17:02 | ED ---
Back Pain HPI - General Chief Complaint: Back Pain/Injury Stated Complaint: Back pain Time Seen by Provider: 09/21/24 16:19 Source: patient, RN notes reviewed Limitations: no limitations - History of Present Illness Initial Comments: 39-year-old male presenting for low back pain x 3 days. States he believes he may have tweaked his back while working on his car. Reports a sharp pain in the lower back when he moves with radiation down bilateral hips and legs. States pain is improved if he wears a back brace and sits still. States he has tweaked his back before and this feels similar. He has been alternating Tylenol and ibuprofen at home which mildly relieves pain. Denies numbness, tingling, or weakness in the bilateral lower extremities. Denies saddle anesthesia or loss of bowel or bladder control. Denies IV drug use or fevers. Denies urinary symptoms. - Related Data Home Medications Medication Instructions Recorded Confirmed Pantoprazole Sodium [Protonix] 40 mg PO DAILY 01/14/17 09/09/19 ALPRAZolam [Xanax] 0.5 mg PO DAILY@1500 07/31/19 09/09/19 ARIPiprazole [Abilify] 7.5 mg PO DAILY 07/31/19 09/09/19 Citalopram Hydrobromide 40 mg PO DAILY 07/31/19 09/09/19 [Citalopram HBr] Insulin Glargine,Hum.rec.anlog 35 unit SQ HS 07/31/19 09/09/19 [Basaglar Kwikpen U-100] Metoprolol Tartrate [Lopressor] 25 mg PO DAILY 07/31/19 09/09/19 glipiZIDE [Glucotrol] 10 mg PO TID 07/31/19 09/09/19 metFORMIN HCL [Glucophage] 1,000 mg PO BID 07/31/19 09/09/19 ALPRAZolam [Xanax] 0.25 mg PO BID@0900,2100 09/09/19 09/09/19 Acetaminophen-Codeine 300-30mg 1 - 2 tab PO Q6H PRN 09/09/19 09/09/19 [Tylenol w/codeine #3] Penicillin V Potassium [Pen Vee K] 500 mg PO TID 09/09/19 09/09/19 Previous Rx's Medication Instructions Recorded lisinopriL [Zestril] 10 mg PO DAILY #30 tab 11/01/15 Acetaminophen [Tylenol Extra 500 mg PO Q6HR 7 Days #28 packet 04/24/21 Strength] Albuterol Inhaler [Ventolin Hfa 1 puff INHALATION RT-QID #8 gm 04/24/21 Inhaler] Mupirocin 2% Oint [Bactroban 2% 1 applic TOPICAL TID #22 gm 11/09/23 Oint] Sulfamethox-Tmp 800-160Mg [Bactrim 1 tab PO Q12HR 5 Days #10 tab 11/09/23 DS 800-160 mg] HYDROcodone/APAP 5-325MG [[place] 1 tab PO Q6HR PRN 3 Days #12 tab 11/10/23 5-325] Ketorolac [Toradol] 10 mg PO Q6HR PRN #15 tab 11/10/23 Cyclobenzaprine [Flexeril] 10 mg PO TID PRN #15 tab 09/21/24 Lidocaine 4% Patch 1 patch TOPICAL DAILY PRN 7 Days 09/21/24 #7 patch Allergies Allergy/AdvReac Type Severity Reaction Status Date / Time naproxen Allergy Rash/Hives Verified 09/21/24 16:06 Shionpg-CAS-TyZ Reductase Allergy "internal Verified 09/21/24 16:06 Inhibitor hives and [Vzboiob-Ilw-Gla Reductase cramps" Inhibitor] simvastatin AdvReac Abdominal Verified 09/21/24 16:06 Pain Review of Systems ROS Statement: Those systems with pertinent positive or pertinent negative responses have been documented in the HPI. ROS Other: All systems not noted in ROS Statement are negative. Past Medical History Past Medical History: Diabetes Mellitus, GERD/Reflux, Hypertension, Sleep Apnea/CPAP/BIPAP Additional Past Medical History / Comment(s): migraines, hx palpiations, not using CPAP, gallstones, "pituitary brain tumor" History of Any Multi-Drug Resistant Organisms: None Reported Past Surgical History: Cholecystectomy, Heart Catheterization, Heart Catheterization With Stent Additional Past Surgical History / Comment(s): wisdom teeth Past Anesthesia/Blood Transfusion Reactions: Previous Problems w/ Anesthesia Additional Past Anesthesia/Blood Transfusion Reaction / Comment(s): has a hard time breathing when lying flat or on side Past Psychological History: Anxiety, Depression, Panic Disorder, Schizophrenia Smoking Status: Former smoker Past Alcohol Use History: None Reported Past Drug Use History: Marijuana - Past Family History Mother Family Medical History: No Reported History Additional Family Medical History / Comment(s): . General Exam Limitations: no limitations General appearance: alert, in no apparent distress Head exam: Present: atraumatic, normocephalic, normal inspection Eye exam: Present: normal appearance, PERRL, EOMI. Absent: scleral icterus, conjunctival injection, periorbital swelling GI/Abdominal exam: Present: soft, normal bowel sounds. Absent: distended, tenderness, guarding, rebound, rigid Back exam: Present: normal inspection, full ROM, paraspinal tenderness (Paraspinal muscle spasms bilaterally), other (Full strength and range of motion of bilateral hips, no saddle anesthesia, full sensation and DP pulses bilaterally). Absent: CVA tenderness (R), CVA tenderness (L), vertebral tenderness Neurological exam: Present: alert, oriented X3 Psychiatric exam: Present: normal affect, normal mood Skin exam: Present: warm, dry, intact, normal color. Absent: rash Course Vital Signs 09/21/24 16:03 Temperature 97.8 F Pulse Rate 79 Respiratory 17 Rate Blood Pressure 114/76 O2 Sat by Pulse 98 Oximetry Medical Decision Making - Medical Decision Making Was pt. sent in by a medical professional or institution ([facility], [facility], urgent care, hospital, or custodial...) When possible be specific @ -No Did you speak to anyone other than the patient for history (EMS, parent, family, police, friend...)? What history was obtained from this source @ -No Did you review nursing and triage notes (agree or disagree)? Why? @ -I reviewed and agree with nursing and triage notes Were old charts reviewed (outside hosp., previous admission, EMS record, old EKG, old radiological studies, urgent care reports/EKG's, custodial records)? Report findings @ -No old charts were reviewed Differential Diagnosis (chest pain, altered mental status, abdominal pain women, abdominal pain men, vaginal bleeding, weakness, fever, dyspnea, syncope, headache, dizziness, GI bleed, back pain, seizure, CVA, palpatations, mental health, musculoskeletal)? @ -Differential Back Pain: Strain, zoster, cauda equina syndrome, epidural abscess, vertebral osteomyelitis, discitis, fracture, subluxation, disc herniation, DJD, spinal stenosis, dissection, AAA, pancreatitis, peptic ulcer disease, pyelonephritis, kidney stone, this is not meant to be an all-inclusive list. EKG interpreted by me (3pts min.). @ -None X-rays interpreted by me (1pt min.). @ -X-ray lumbar spine reveals no acute process CT interpreted by me (1pt min.). @ -None done U/S interpreted by me (1pt. min.). @ -None done What testing was considered but not performed or refused? (CT, X-rays, U/S, labs)? Why? @ -None What meds were considered but not given or refused? Why? @ -None Did you discuss the management of the patient with other professionals (professionals i.e. , PA, [facility], lab, RT, psych nurse, web content & social media manager, founder president and ceo, teacher, contracts officer, briefcase sewer)? Give summary @ -No Was smoking cessation discussed for >3mins.? @ -No Was critical care preformed (if so, how long)? @ -No Were there social determinants of health that impacted care today? How? (Homelessness, low income, unemployed, alcoholism, drug addiction, transportation, low edu. Level, literacy, decrease access to med. care, fdc, rehab)? @ -No Was there de-escalation of care discussed even if they declined (Discuss DNR or withdrawal of care, Hospice)? DNR status @ -No What co-morbidities impacted this encounter? (DM, HTN, Smoking, COPD, CAD, Cancer, CVA, ARF, Chemo, Hep., AIDS, mental health diagnosis, sleep apnea, morbid obesity)? @ -None Was patient admitted / discharged? Hospital course, mention meds given and route, prescriptions, significant lab abnormalities, going to OR and other pertinent info. @ -Discharge. 39-year-old male presenting for low back pain x 3 days. No red flag symptoms. Neurovascularly intact. Patient is provided with Toradol, Norflex, and lidocaine patch for supportive care. X-ray lumbar spine reveals no acute process. Urinalysis revealed 4+ glucose, negative for blood or bacteria. Discussed diagnosis of low back strain with patient. Patient will be provided for outpatient prescription for Flexeril and lidocaine patches. I also recommended to alternate Tylenol/ibuprofen. Appropriate return precautions and follow-up care/supportive care discussed. Case was discussed with my ED attending Dr. Prado. Undiagnosed new problem with uncertain prognosis? @ -No Drug Therapy requiring intensive monitoring for toxicity (Heparin, Nitro, Insulin, Cardizem)? @ -No Were any procedures done? @ -No Diagnosis/symptom? @ -Low back strain Acute, or Chronic, or Acute on Chronic? @ -Acute Uncomplicated (without systemic symptoms) or Complicated (systemic symptoms)? @ -Uncomplicated Side effects of treatment? @ -No Exacerbation, Progression, or Severe Exacerbation? @ -No Poses a threat to life or bodily function? How? (Chest pain, [place], [place], pneumonia, PE, COPD, DKA, ARF, appy, cholecystitis, CVA, Diverticulitis, Homicidal, Suicidal, threat to staff... and all critical care pts) @ -No - Lab Data Lab Results 09/21/24 Range/Units 17:55 Urine Color Colorless Urine Appearance Clear (Clear) Urine pH 5.5 (5.0-8.0) Ur Specific [place] 1.034 (1.001-1.035) Urine Protein Negative (Negative) Urine Glucose (UA) 4+ H (Negative) Urine Ketones Negative (Negative) Urine Blood Negative (Negative) Urine Nitrite Negative (Negative) Urine Bilirubin Negative (Negative) Urine Urobilinogen <2.0 (<2.0) mg/dL Ur Leukocyte Esterase Negative (Negative) Disposition Clinical Impression: Low back strain Disposition: HOME SELF-CARE Condition: Stable Instructions (If sedation given, give patient instructions): Acute Low Back Pain (ED) Additional Instructions: Use lidocaine patches and Flexeril as needed for pain. You may also take Tylenol or ibuprofen as needed for pain. Please return to the Emergency Department if symptoms worsen or any other concerns. Prescriptions: Cyclobenzaprine [Flexeril] 10 mg PO TID PRN #15 tab PRN Reason: Muscle Spasm Lidocaine 4% Patch 1 patch TOPICAL DAILY PRN 7 Days #7 patch PRN Reason: Pain Is patient prescribed a controlled substance at d/c from ED?: No Referrals: Rashaad Chau MD [Primary Care Provider] - 1-2 days Time of Disposition: 18:11
[2024-09-21] MEDS: ORPHENADRINE 30 MG/ML 2 ML VIAL IM STA (17:23)
[2024-09-21] MEDS: LIDOCAINE 4% PATCH TOPICAL ONE (17:23)
[2024-09-21] MEDS: KETOROLAC 15 MG/ML 1 ML VIAL IM STA (17:31)
--- NOTE | 2024-09-21 18:00 | XR ---
EXAMINATION TYPE: XR lumbar spine 2 or 3V DATE OF EXAM: 09/21/2024 5:21 PM COMPARISON: 12/12/2022 CLINICAL INDICATION: Male, 39 years old with history of low back pain; PHH, pain TECHNIQUE: XR lumbar spine 2 or 3V - Frontal, lateral and coned in L5-S1 lateral views of the spine. FINDINGS: No evidence of any acute osseous pathology. No evidence of loss of vertebral body height i s seen. There is normal alignment of the lumbar vertebral bodies. Scattered disc space narrowing. Mul tilevel marginal osteophyte formation throughout the visualized spine. There is facet joint arthropat hy throughout the spine. Scattered at least mild neural foraminal stenosis. IMPRESSION: 1. No acute fracture. 2. Mild multilevel disc degeneration. [facility], , 09/21/2024 5:58 PM
[2024-09-21 18:01] LABS: Appearance,Urine Clear (Clear); Bilirubin,Urine Negative (Negative); Blood,Urine Negative (Negative); Color,Urine Colorless; Glucose,Urine (UA) 4+ (Negative); Ketones,Urine Negative (Negative); Leukocyte Esterase,Urine Negative (Negative); Nitrite,Urine Negative (Negative); PH, Urine 5.5 (5.0-8.0); Protein,Urine Negative (Negative); Specific Gravity,Urine 1.034 (1.001-1.035); Urobilinogen,Urine <2.0 mg/dL (<2.0)
[2024-09-21] MEDS: CYCLOBENZAPRINE 10 MG TAB PO STA ×2 (18:20)
[2024-09-21 18:24] VITALS: BP 120/81; PULSE 76; RESP 20; TEMP 98
== END 2024-09-21 18:22 | disposition home or self-care (01) ==
LOC: EC 15:59
DX: S39.012A Strain of muscle, fascia and tendon of lower back, initial encounter (principal); Z87.891 Personal history of nicotine dependence; Z88.8 Allergy status to other drugs, medicaments and biological substances; X50.0XXA Overexertion from strenuous movement or load, initial encounter
CPT/HCPCS: 81003; 72100; 99283; 96372 ×2; J2360; J1885

== ENCOUNTER → 2024-11-27 | Outpatient (CLI) | payer MEDICARE, OTHER ==
--- NOTE | 2024-11-27 14:12 | MR ---
INDICATION: Patient age:Male; 39 years old; Reason for study: Hx benign neoplasm; [facility]. COMPARISON: MR Pituitary 06/05/2018, CT brain 03/17/2016. TECHNIQUE: Multi planar, multi sequence imaging was performed through the brain. Specialized thin seq uences were obtained through the pituitary gland/sella turcica. The patient was then given 13.5 cc of Gadobutrol intravenously and multi planar, T1 fat-saturation images were obtained. FINDINGS: The see-white junctions, ventricular system, basal cisterns appear unremarkable. Age-appropriate cer ebral parenchymal volume. Diffusion-weighted imaging shows no evidence of restricted diffusion to sug gest acute/subacute infarct. Intracranial arterial flow voids are maintained. Midline structures show no abnormality. Couple foci of high T2/FLAIR signal intensity are seen within the periventricular an d subcortical white matter. The susceptibility weighted images do not reveal any evidence for micro-h emorrhage. After administration of gadolinium, no abnormal enhancement is seen. The bone marrow signal is within normal limits. The globes are unremarkable. Right anterior inferior maxillary sinus subcentimeter T2 hyperintense mucous retention cyst. Mild mucosal thickening of the posterior left ethmoid sinus. The morphology of the pituitary gland is within normal limits. The pituitary stalk is not deviated. After administration of gadolinium, there is a focal lesion redemonstrated within the midline putty mixer ior aspect of the gland measuring approximately 4 mm with delayed enhancement compared to the surroun ding pituitary parenchyma. IMPRESSION: 1. No evidence of intracranial mass, acute/subacute infarct, or abnormal enhancement. 2. Stable 4 mm lesion within the pituitary gland most consistent with a pituitary microadenoma. 3. Nonspecific minimal white matter changes. Etiologies include chronic migraines versus small vessel ischemic disease versus demyelinating disease versus other. [facility], , 11/27/2024 2:10 PM
== END | disposition home or self-care (01) ==
LOC: RADMRIMAIN 12:54
PROVIDERS: ATTEND Internal Medicine
DX: R90.82 White matter disease, unspecified (principal); Z86.018 Personal history of other benign neoplasm; G93.89 Other specified disorders of brain
CPT/HCPCS: 70553; A9585

== ENCOUNTER → 2024-12-26 | Outpatient (CLI) | payer MEDICARE, OTHER ==
--- NOTE | 2024-12-26 13:19 | XR ---
EXAMINATION TYPE: XR shoulder complete RT DATE OF EXAM: 12/26/2024 1:13 PM INDICATION: Patient age:Male; 39 years old; Reason for study: M25.511Right shoulder pain; pain COMPARISON: Chest radiograph 04/15/2022 TECHNIQUE: The right shoulder was examined in AP, internally rotated and scapular Y projections. . FINDINGS: No evidence of acute osseous pathology, joint dislocation, or soft tissue swelling. The remaining por tions of the visualized chest are unremarkable. IMPRESSION: No acute osseous pathology. [facility], , 12/26/2024 1:17 PM
== END | disposition home or self-care (01) ==
LOC: RADXRMAIN 12:53
PROVIDERS: ATTEND Internal Medicine
DX: M25.511 Pain in right shoulder (principal)